=== PATIENT | male | born 1970 | race Caucasian/White ===

== ENCOUNTER 2024-04-17 14:31 | Inpatient (IN) | payer OTHER, SELFPAY ==
[2024-04-17] VITALS (24 sets, daily range): BP systolic 81–120; BP diastolic 60–85; BMI 31.7; BMI 31.4
--- NOTE | 2024-04-17 08:50 | ED.GENMED ---
History of Present Illness
General
Chief Complaint: Heart Rate Problem
Time Seen by Provider: 04/17/24 08:50
History of Present Illness
History of Present Illness:
HPI: Patient presents due to multiple concerns. Yesterday, after having a busy day and after working out, he developed some lower chest discomfort. This was associated with some vague shortness of breath with some pleuritic discomfort. He felt
somewhat dizzy and lightheaded. He was also concerned because his heart rate was elevated and is normally much lower. He regularly works out. He did not necessarily have chest discomfort during working out on the [employer] yesterday.
EXAM:
GENERAL: In no distress, athletic build, very well-appearing
HEENT: Moist oral mucosa
CARDIOVASCULAR: No murmurs, normal heart rate, regular rhythm, No chest wall tenderness
PULMONARY: No respiratory distress, breath sounds are clear and equal
ABDOMEN: Soft with no peritoneal signs, no tenderness
NEUROLOGIC: Excellent strength all extremities, no coordination deficits
PSYCHIATRIC: Appropriate mental status, normal insight and judgement
EXTREMITIES: Nontender, no edema, moves all extremities equally
SKIN: No rash, no lesions
TIME OF INITIAL ENCOUNTER: 8:50 AM
NUMBER AND COMPLEXITY OF PROBLEMS ADDRESSED AT THE ENCOUNTER
� Chronic conditions affecting care: High blood pressure, hyperlipidemia
� Acute Exacerbation and/or Progression of Chronic Illness: This is an acute problem
� Differential Diagnosis includes: Anxiety, dehydration, ACS, thyroid disease, electrolyte abnormality
AMOUNT AND/OR COMPLEXITY OF DATA TO BE REVIEWED AND ANALYZED
� I performed an independent evaluation of and my interpretation is:
EKG: Sinus 88, normal axis, no acute ST abnormality, some mild artifact noted
CT:
X-rays:
Laboratory Studies: Troponin 0.126, D-dimer negative
Other:
� Review of other/old records: I reviewed old records�the patient had a colonoscopy in June 2020
� Clinical information was obtained by an independent historian: I spoke to the at bedside
� Prescriptions/Medications Considered but not given:
� Further testing considered but not performed:
RISK OF COMPLICATIONS AND/OR MORBIDITY OR MORTALITY OF PATIENT MANAGEMENT
� Social determinants of health affecting care: Lives at home
� Discussion with other providers: I spoke to Dr. Keith and he excepted his service for further management.
� Escalation of care including admission/observation vs risk of discharge considered: The patient does not have a history of high blood pressure and high cholesterol. He is not a diabetic and never smoked but he does have a
brother who had a heart attack and was stented at the age of 41. The patient currently denies any chest pressure other than perhaps minimal discomfort�1 nitroglycerin given. The patient was placed on heparin.
Past History
Past History
ED Past Medical History: None
ED Past Surgical History: None
Social History
Tobacco: Non-smoker
Alcohol: Occasional
Drug: None
Personal:
Living: with family
Employment: Employed
Family History
Family History: Other
Phy Exam
Physical Exam
Physical Exam:
See HPI
Course
Orders/Labs/Results
Orders:
Orders
04/17/24 08:37
Electrocardiogram (*1) Urgent
Reason for Study: Tachycardia
EKG- Treatment ONCE
04/17/24 08:58
0.9% Sodium Chloride 1000 ml [Nss] 1,000 ml IV BOLUS
04/17/24 09:05
Complete Blood Count/With Diff Urgent
Comprehensive Metabolic Panel Urgent
D-Dimer Urgent
Magnesium Urgent
TSH Reflex To Free T4 Urgent
Troponin I Urgent
04/17/24 09:47
Aspirin 325 mg PO NOW STA
Heparin 4,000 units IV NOW STA
Nitroglycerin Sublingual [Nitrostat (Sublingual)] 0.4 mg SL NOW STA
04/17/24 09:48
PTT Urgent
Comment: Obtain baseline before beginning heparin infusion if not already collected
Nursing to Place Non Medication Order As Directed
Physician Order: PTT 6 hours after initial start of Heparin infusion
04/17/24 10:00
Heparin 04300 Units/250 ml 25,000 units in 250 ml IV PER PROTOCOL
Weight to be used for heparin protocol in kilograms (kg):: 115.2
Protocol:: Cardiac Tx/Acute Coronary
PTT Goal Range to be used:: PTT 73 to 111 seconds
Order type:: Initial
INITIAL Infusion Dose (UNITS/KG/hr) & then follow protocol:: 15 units/kg/hr
Infusion Dose in UNITS/hr & then follow protocol (UNITS/hr):: 1,500
INFUSION RATE in mL/hr & then follow protocol (mL/hr):: 15
PTT less than or equal to 64 seconds:: Increase rate by 200 units/hr (+ 2 mL/hr)
PTT 64.1 to 72.9 seconds:: Increase rate by 100 units/hr (+ 1 mL/hr)
PTT 73 to 111 seconds:: Target Range. No change in rate.
PTT 111.1 to 130.9 seconds:: Decrease rate by 100 units/hr (- 1 mL/hr)
PTT 131 to 199.9 seconds:: HOLD for 1 hr. Then decrease rate by 200 units/hr (- 2 mL/hr)
PTT greater than or equal to 200 seconds:: HOLD for 2 hrs & Notify Provider. Then decrease by 200 units/hr (-
2 mL/hr)
Lab follow-up:: Each change, PTT q6h until 2 consecutive are therapeutic. Then PTT
daily.
Pharmacy Request to Place See Dose Instructions IV DIRECTED
Abnormal Lab Results
04/17/24
09:05
RBC 4.50 L 10^6/uL
(4.70-6.10)
MCH 32.2 H pg
(27.0-31.0)
Absolute Neuts (auto) 7.8 H 10^3/uL
(1.4-6.5)
Absolute Monos (auto) 1.3 H 10^3/uL
(0.1-0.6)
Lymphocytes % 13.8 L %
(20.5-51.1)
Monocytes % 11.7 H %
(1.7-9.3)
BUN 26 H mg/dl
(9-20)
Glucose 119 H mg/dl
(70-99)
Troponin I 0.126 H* ng/ml
04/17/24 09:05
04/17/24 09:05
Vital Signs
Initial and Last Documented VS:
Initial Vital Signs
Temp Pulse Resp BP Pulse Ox
98.7 F 89 18 116/80 100
04/17/24 08:43 04/17/24 08:43 04/17/24 08:43 04/17/24 08:43 04/17/24 08:43
Last Documented Vital Signs
Temp Pulse Resp BP Pulse Ox
98.7 F 86 13 101/82 96
04/17/24 08:43 04/17/24 09:00 04/17/24 09:00 04/17/24 09:00 04/17/24 09:00
*Critical Care Note
Total Time (30-74mins, 75-104mins- exclusive of procedures): Not Applicable
ED Attending Note
-
Portions of this chart may have been created with voice recognition software.� Occasional wrong word or��sound alike� substitutions may have occurred due to the inherent limitations of voice recognition software.
Discharge Plan
Departure
Patient Disposition: Admit
Date of Disposition: 04/17/24
Time of Disposition: 09:57
Presentation/result/management discussed w/ accepting MD/DO: Hospitalist
Discharge Problem:
Acute coronary syndrome with high troponin
Prescriptions:
No Action
sulfamethoxazole-trimethoprim 800 MG/160 MG tablet
1 tab PO BID Qty: 14 0RF
hydrocodone-acetaminophen [Vicodin] 1 EACH tablet
1 ea PO .Q4-6HPRN Qty: 12 0RF
ibuprofen 600 MG tablet
600 mg PO Q6H Qty: 30 0RF
cephalexin 500 MG capsule
500 mg PO QID Qty: 28 0RF
multivitamin [Daily Multiple] 1 EACH tablet
1 tab PO DAILY
Referrals:
Angus Simon PA-C [Family Provider] -
Interventions
Interventions:
*Risk Screen - Suicide Last Done: 04/17/24 08:43
*General Assessment Last Done: 04/17/24 08:43
*Neglect/Abuse Screening Last Done: 04/17/24 08:43
ED- Fall Risk Assessment Last Done: 04/17/24 09:10
*ED COVID-19 Vaccine History Last Done: 04/17/24 08:52
ED- Cardiac Assessment Last Done: 04/17/24 08:52
ED- Pulmonary Assessment Last Done: 04/17/24 08:52
Discharge Date and Time
Print Language: SALVADOREAN
[2024-04-17] MEDS: NSS 1000 IV (09:04)
[2024-04-17 09:19] LABS: % Basophils 0.4 % (0-2); % Eosinophils 1.1 % (0-6); % Immature Granulocytes 0.3 % (0-0.5); % Lymphocytes 13.8 % (20.5-51.1); % Monocytes 11.7 % (1.7-9.3); % Neutrophils 72.7 % (42.2-75.2); Absolute Eosinophils 0.1 10^3/uL (0-0.7); Absolute Lymphocytes 1.5 10^3/uL (1.2-3.4); Absolute Monocytes 1.3 10^3/uL (0.1-0.6); Absolute Neutrophils 7.8 10^3/uL (1.4-6.5); Hematocrit 41.6 % (39.0-52.0); Hemoglobin 14.5 g/dL (13.0-18.0); Mean Corp Hgb Conc. 34.9 g/dL (33.0-37.0); Mean Corpuscular Hgb 32.2 pg (27.0-31.0); Mean Corpuscular Volume 92.4 fL (80.0-94.0); Mean Platelet Volume 10.4 fL (7.4-10.4); Nucleated Red Blood Cells % 0 % (-); Platelet Count 247 10^3/uL (130-400); Red Cell Dist. Width 12.6 % (11.5-14.5); White Blood Cell Count 10.7 10^3/uL (4.8-10.8)
[2024-04-17 09:31] LABS: ALT (SGPT) 19 U/L (0-50); AST (SGOT) 26 U/L (17-59); Albumin 4.6 g/dl (3.5-5.0); Alkaline Phosphatase 56 U/L (38-126); Blood Urea Nitrogen 26 mg/dl (9-20); Calcium 9.5 mg/dl (8.4-10.2); Carbon Dioxide 23 mmol/L (22-30); Chloride 102 mmol/L (98-107); Estimated Creatinine Clearance 87 ml/min; Glucose 119 mg/dl (70-99); Magnesium 1.9 mg/dl (1.6-2.3); Potassium 4.5 mmol/L (3.5-5.1); Sodium 141 mmol/L (135-145); Total Protein 6.8 g/dl (6.3-8.2); eGFR > 60.00
[2024-04-17 09:46] LABS: Troponin I 0.126 ng/ml
[2024-04-17 09:50] LABS: D-Dimer 0.42 ug/mlFEU (0.00-0.50)
[2024-04-17] MEDS: NITROSTAT (SUBLINGUAL) 0.4 MG SL (10:00)
[2024-04-17] MEDS: ASPIRIN 325 MG PO (10:00)
[2024-04-17 10:02] LABS: TSH Reflex To Free T4 1.65 uIU/ml (0.47-4.68)
[2024-04-17] MEDS: HEPARIN 25000 UNITS/250 ML IV (10:08)
[2024-04-17] MEDS: HEPARIN 4000 UNITS IV (10:09)
--- NOTE | 2024-04-17 10:53 | HPS.HSE ---
Addendum entered and electronically signed by Danish Keith MD 04/17/24 12:17:
Patient seen and examined in collaboration with CONTINUOUS WAVE OPERATOR; agree with below.
-54-year-old male with hypertension, hyperlipidemia, mild obesity, and family history of coronary artery disease (brother and father) presenting with chest pain and shortness of breath over the past day.
-The patient was found to have a notable murmur on examination; cardiac troponin mildly elevated at 0.129.
-Urgent bedside echocardiogram revealed significant mitral regurgitation secondary to flail posterior leaflet of the mitral valve, which is likely acute as the patient has borderline hyperdynamic left ventricular function (and he was not told that
he had a murmur before).
-Patient will undergo cardiac catheterization for definitive coronary assessment.
-CT Surgery has been notified of the above.
-Patient is currently hemodynamically stable, but does still have some mild midepigastric pain.
-Patient being admitted to the Cardiology service on telemetry in the IVU.
-Keep NPO for cardiac catheterization.
Original Note:
Family Physician
-
Family Physician: Angus Simon
Chief Complaint
-
chest pain, lightheadedness, palpitations
History of Present Illness
Mr. Carranza is a 54 yo male with HTN, HLD, who presents to the ER with c/o chest pain, palpitations and lightheadedness that began last night. Yesterday at 4:30p he rode his [employer], 30 min ride, then walked his dog. He was breaking down cardboard
boxes in his garage and suddenly felt dizzy, sweaty and mild chest pain/epigastric pain. He sat down and noted his heart rate was 110-115 bpm on his Apple Watch, then his rate dropped to 65 then fluctuated between 90 and 60 bpm. He has been very
stressed with work and took an Ativan before bed. He woke up at 2am with chest pressure/epigastric pressure that was moderate. It is intermittent mild to moderate and still persists. He was given a SL NTG in the ER with minimal relief. He did
eat a small breakfast at 7am today.
Medical History
Past Medical History
Past Medical History: Reports HTN and Hypercholesterolemia
Past Surgical History: Reports None
Social History
Tobacco: Non-smoker
Alcohol: Occasional (2-3 drinks, 2-3 times a week)
Personal:
Living: With Family
Employment: Employed
Family History
Family History: Early CAD (brother MO with PCI age 41) and CAD (father had CABG x 4 age 65)
Allergies / Home Medications
Allergies reflects when Allergies were last updated in [employer] [employer].
Home Medications with original date entered in [employer]
Losartan 100mg daily
Crestor 10mg daily
Allergy/Medication List:
NKDA
Review of Systems
-
History Source: Patient and Family ()
A 12 point ROS was completed and negative except as noted: Yes
Physical Exam
Vital Signs
Vital Signs
Temp Pulse Resp BP Pulse Ox
98.7 F 86 13 104/72 96
04/17/24 08:43 04/17/24 09:00 04/17/24 09:00 04/17/24 10:00 04/17/24 09:00
Physical Exam
General: Well Developed, Well Nourished and No Apparent Distress
HEENT: NormoCephalic, Anicteric and Moist mucous membranes
Respiratory: Clear and Non Labored Respirations
Cardiac: S1/S2, Regular Rhythm and Murmur (2/6 XAVIER)
Breast: Deferred by me
GI: Soft, Non Tender, Non Distended and Normal Bowel Sounds
Rectal: Deferred by Provider
Genito-urinary: No costovertebral tender
Musculoskeletal: No Clubbing, No Cyanosis and No Edema
Skin: Warm and Dry
Neuro: AO x 3 and Nonfocal/grossly intact
Hematologic/Lymphatic: No Lymphadenopathy
Psych: Calm
Laboratory Results
-
04/17/24 09:05
04/17/24 09:05
Laboratory Results
Total Bilirubin 1.0 mg/dl (0.2-1.3) 04/17/24 09:05
AST 26 U/L (17-59) 04/17/24 09:05
ALT 19 U/L (0-50) 04/17/24 09:05
Alkaline Phosphatase 56 U/L (38-126) 04/17/24 09:05
Troponin I 0.126 ng/ml H* 04/17/24 09:05
Data Reviewed
-
Medical Tests (Nuc Med, Echo, EKG etc): Image Personally Visualized and interpreted (EKG NSR)
Lab Data: Labs Reviewed by me
Old Records: Reviewed
Impression/Plan
-
IMPRESSION/PLAN:
Chest pain/ACS - acute, after exercise yesterday.
- initial troponin 0.126, trend to peak.
- EKG NSR
- IV Heparin, SL NTG.
- plan for cath lab tech today.
Palpitations - monitor on tele.
- likely need outpatient cardiac monitoring.
Murmur - new.
- check echo.
HTN - stable.
- on Losartan 100mg daily at home.
HLD - check lipid profile.
- on Crestor 10mg daily.
--- NOTE | 2024-04-17 13:03 | PHANOTE ---
Med Rec Note:
Pt left for floor prior to pharmacist arrival. Home med list compiled from Dr Weinberg, left unconfirmed. Flow Nurse asked floor to confirm medications.
--- NOTE | 2024-04-17 13:07 | CONSULT.CT ---
Consultation
-
Date/Time Consultation Requested: 04/17 1300
Date/Time Consultation Performed: 04/17 1310
Requesting Provider: Dr. Keith
Performing Provider: Bertram PATTEN for Dr Mota
Reason for Consultation: Severe MR
Patient History
Physicians
Family Physician: Angus Simon
Outpatient Manager Of Construction: Danish Keith MD
Inpatient Manager Of Construction: Danish Keith MD
History of Present Illness
54-year-old male with past medical history of hypertension, GI polyps, and hyperlipidemia presented to [facility] emergency room on 04/17 with complaints of chest pain, palpitations, and lightheadedness that began last night. He was having an
active night and suddenly felt dizzy, sweaty, and had some mild chest pain/epigastric pain. On his Apple Watch he found that he was tachycardic with heart rate (110s) and then dropped to 65. He then took an ativan and went to bed. At 2 AM he woke
up with more moderate chest pressure and came to the emergency room. While in the emergency room he took 1 sublingual nitroglycerin and felt minimal relief.
Since admission cardiology was consulted and he was found to have a notable murmur on examination and a mildly elevated troponin at 0.129. An urgent bedside echocardiogram revealed severe mitral regurgitation secondary to a flail posterior leaflet.
He is now undergoing a left heart cath and CT surgery was consulted for surgical evaluation.
Past Medical History
Past Medical History: Arrhythmias, HTN, Hypercholesterolemia and SOB
Past Surgical History
Past Surgical History: Urological (varicocele) and Other
Dental History
[facility] will call for dental clearance
Family History
Mother: N/A
Father: N/A
Social History
Alcohol: Occasional (3x/week)
Drug: None
Tobacco: Non-Smoker
Personal:
Living: Alone
Employment: Employed
Allergies
Allergy/AdvReac Type Severity Reaction Status Date / Time
No Known Allergies Allergy Verified 03/15/13 17:34
Home Medications
�Medication �Instructions �Recorded �Confirmed �Type
losartan 100 mg tablet 100 mg PO DAILY 04/17/24 History
rosuvastatin 10 mg tablet 10 mg PO HS 04/17/24 History
Review of Systems
-
History Source: Patient and Family
General: Reports Sleep Disturbance
HEENT: Reports No Symptoms
Respiratory: Reports SOB, SRIVASTAAV and Cough (2/2 to right hemidiaphgram pain)
Cardiac: Reports Chest Pain
Abdomen/GI: Reports Abdominal Pain
: Reports No Symptoms
Musculoskeletal: Reports No Symptoms
Skin: Reports No Symptoms
Neurological: Reports Dizzy
Vascular: Reports No Symptoms
Physical Exam
Vital Signs
Temp 98.7 F 04/17/24 08:43
Temp route: Oral 04/17/24 08:43
Pulse 92 04/17/24 12:30
Resp Rate 18 04/17/24 12:30
Blood pressure 111/72 04/17/24 12:30
MAP (cuff-Wilfred Monitor) 85 04/17/24 12:30
SaO2 97 04/17/24 12:30
Oxygen Mode of Delivery Room air 04/17/24 08:43
Can the patient verbally communicate their pain? Yes 04/17/24 10:00
Pain scale rating: Pt states unable to rate 04/17/24 10:00
Actual Weight 115.2 kg 04/17/24 08:52
Body Mass Index (BMI) 31.7 04/17/24 08:52
Labs
04/17/24 09:05
04/17/24 09:05
Troponin I 0.126 ng/ml H* 04/17/24 09:05
Exam
General: Well Developed and Well Nourished
HEENT: Normocephalic
Respiratory: Clear and Crackles
Cardiac: Murmur
GI: Soft and Non Tender
Rectal: Deferred by Provider
Skin: Warm and Dry
Neuro: AO x 3 and Other (anxious)
Lymph: No Lymphadenopathy
Psych: Other (anxious)
Assessment / Plan
-
54-year-old male with past medical history listed above presents with acute shortness of breath and chest pain. Found to have a flail leaflet on his mitral valve. CT surgery was consulted for surgical evaluation.
#Severe Mitral Regurgitation
- LHC and ALEXANDER pending
- Patient's case will be discussed with attending physician. Further details regarding surgical timing intervention will be determined after attending physicians full evaluation
- Routine preoperative cardiothoracic surgery orders will be initiated.
- STS risk stratification score will be calculated after preoperative testing is complete
--- NOTE | 2024-04-17 14:01 | PTCARENOTE ---
Received pt from the ED via stretcher. Pt AAO x3, VSS. Heparin drip infusing at 15 ml/hr. Pt verbalized sob and 'mid diaphram tightness'. Pt rates this tightness as 2 out of 10 on pain scale. Pt states that the tightness increases when coughing
or laying flat. Offered comfort measures. Will monitor.
--- NOTE | 2024-04-17 15:32 | ITS.CL.CATH ---
[employer] [employer] - Catheterization
Cardiac Catheterization
Procedure Report:
CARDIAC CATHETERIZATION REPORT
Date of Procedure: 04/17/2024
Referring: Danish Keith MD
Indication: Suspected severe mitral regurgitation
�
HEMODYNAMIC DATA
AO: 116/82
LV: 116/20
PCWP: 20
PA: 42/22
RV: 42/16
RA: 4
Oximetry: Ao 81%, PA 49%, cardiac output 4.7, cardiac index 1.9
�
LEFT VENTRICULOGRAPHY: Left ventricular cavity size appears to be within normal limits. There is hyperdynamic left ventricular wall motion with EF greater than 65%. There is mitral regurgitation at least moderate in severity and possibly severe
�
CORONARY ANGIOGRAPHY
Dominance: Right
Left Main: Normal
LAD: Trivial luminal irregularities
Circumflex: Normal
RCA: Dominant with trivial luminal irregularities
�
Closure Device: None-the procedure was performed via the right radial artery and right femoral vein
�
Radiation dose (mGy): 473
DAP (cm2.Gy): 35.7
Fluoroscopy time: 2.5 minutes
�
CONCLUSIONS:
1. Elevated filling pressures with mild pulmonary hypertension
2. Hypoxemia with aortic saturation in the 85% range on O2 5 L/min
3. Hyperdynamic left ventricular wall motion with EF greater than 65%
4. At least moderate and possibly severe mitral regurgitation
5. No significant CAD
�
RECOMMENDATIONS: Lasix 20 mg IV x 1 given. He will likely need corrective mitral valve surgery. We will obtain a chest x-ray PA and lateral. Pulmonary consultation is recommended given the degree of hypoxemia. ALEXANDER will be done when clinically
stable-at this time he is too hypoxic to undergo ALEXANDER unless he gets intubated
�
Copy to: Danish eKith MD, Pankaj Simon, KASEY
�
Roman Li MD, FAC, [facility]
--- NOTE | 2024-04-17 16:12 | CM ---
CM following for DC planning needs.
Met w/ patient and mult. family members at bedside. Introduced CM, explained role.
Pt. resides w/ spouse in a private, 2 story home. Main bedroom/ bath located on 2nd level.
Functionally, patient is indep. at baseline w/ ADLs, mobility without any assisted device; no DME @ home. Pt. works full-time.
Pt. has Rx plan and uses [facility] on [address]
CT Surg C/S pending.
CM to follow for DC planning needs.
--- NOTE | 2024-04-17 16:30 | PTCARENOTE ---
Received pt post left and right heart cath. Right radial site w/ R band intact w/ 11 ml of air. Right groin site w/ dressing intact. Pt given 20 mg of lasix in the cardiac shipyard laborer. Pt orthopneic pre and post cath. VSS. Pulse ox of 93% on 3
liters via nasal cannula. Pt soon became more tachypneic and diaphoretic. Pt's nasal cannula increased to 6 liters due to saturation of 85% and continued increase work of breathing. Dr. Li at pt bedside. Will monitor.
[2024-04-17 17:42] LABS: COVID-19 Antigen Negative (Negative)
[2024-04-17] MEDS: MAGNESIUM OXIDE 500 MG PO (18:07)
[2024-04-17] MEDS: PROTONIX 40 MG PO (18:07)
[2024-04-17] MEDS: LOPRESSOR 25 MG PO (18:07)
[2024-04-17] MEDS: BACTROBAN 2% OINTMENT 1 APPLIC NASAL ×2 (18:16→23:57)
--- NOTE | 2024-04-17 19:27 | PTCARENOTE ---
Blood cultures x 2 sets drawn per MD order.
--- NOTE | 2024-04-17 19:28 | PTCARENOTE ---
Pt clipped and prepped for CVOR. Pt transported to CVOR in CVICU bed, accompanied by the CV PA. Pt's spouse, sister and children in The family comfort lounge.
[2024-04-17 19:36] LABS: Urine Albumin Trace (Neg - Trace); Urine Bilirubin 1+ (Negative); Urine Character Clear (Clear); Urine Color Yellow; Urine Glucose Negative (Negative); Urine Ketone Negative (Negative); Urine Leukocyte Trace (Negative); Urine Nitrite Negative (Negative); Urine Occult Blood 3+ (Negative); Urine Urobilinogen Negative (Neg - 1+)
[2024-04-17 19:53] LABS: ACT+ - POC 104 Seconds (82-134)
[2024-04-17 19:54] LABS: Urine Bacteria Few (Negative); Urine Red Blood Cell 30-40 /HPF (0-2); Urine White Cell 0-2 /HPF (0-5)
[2024-04-17 20:22] LABS: ACT+ - POC 610 Seconds (82-134)
[2024-04-17 20:40] LABS: B.E. - POC -4.1 mmol/L; Glucose - POC 138 mg/dl (70-99); HCO3 - POC 21 mmol/L (21-29); Hematocrit - POC 46 % PCV (42-52); Hemodilution- POC No; Hemoglobin Calculated - POC 15.6; O2 Saturation %Calculated-POC 85.1 5 (92-96); PCO2 - POC 36 mmHg (35-45); PO2 - POC 51 mmHg (80-100); Potassium - POC 4.1 mmol/L (3.6-5.0); Sodium - POC 140 mmol/L (135-145); pH - POC 7.37 (7.35-7.45)
[2024-04-17 20:51] LABS: ACT+ - POC 496 Seconds (82-134)
[2024-04-17 21:03] LABS: B.E. - POC -1.6 mmol/L; Glucose - POC 147 mg/dl (70-99); HCO3 - POC 25 mmol/L (21-29); Hematocrit - POC 34 % PCV (42-52); Hemodilution- POC Yes; Hemoglobin Calculated - POC 11.7; Ionized Calcium - POC 1.06 mmol/L (1.12-1.27); O2 Saturation %Calculated-POC 99.7 5 (92-96); PCO2 - POC 49 mmHg (35-45); PO2 - POC 225 mmHg (80-100); Potassium - POC 4.3 mmol/L (3.6-5.0); Sodium - POC 138 mmol/L (135-145); pH - POC 7.32 (7.35-7.45)
[2024-04-17 21:13] LABS: ACT+ - POC 571 Seconds (82-134)
[2024-04-17 21:38] LABS: B.E. - POC -2.6 mmol/L; Glucose - POC 156 mg/dl (70-99); HCO3 - POC 24 mmol/L (21-29); Hematocrit - POC 38 % PCV (42-52); Hemodilution- POC Yes; Ionized Calcium - POC 1.12 mmol/L (1.12-1.27); PCO2 - POC 49 mmHg (35-45); PO2 - POC 411 mmHg (80-100); POC Comment CPB; Potassium - POC 5.1 mmol/L (3.6-5.0); Sodium - POC 138 mmol/L (135-145)
[2024-04-17 21:48] LABS: ACT+ - POC 517 Seconds (82-134)
[2024-04-17 22:03] LABS: Glucose - POC 153 mg/dl (70-99); HCO3 - POC 26 mmol/L (21-29); Hematocrit - POC 37 % PCV (42-52); Hemodilution- POC Yes; Hemoglobin Calculated - POC 12.7; Ionized Calcium - POC 1.09 mmol/L (1.12-1.27); O2 Saturation %Calculated-POC 99.9 5 (92-96); PCO2 - POC 44 mmHg (35-45); PO2 - POC 285 mmHg (80-100); POC Comment CPB; Potassium - POC 5.3 mmol/L (3.6-5.0); Sodium - POC 141 mmol/L (135-145); pH - POC 7.39 (7.35-7.45)
[2024-04-17 22:10] LABS: ACT+ - POC 485 Seconds (82-134)
[2024-04-17 22:30] LABS: Glucose - POC 160 mg/dl (70-99); HCO3 - POC 24 mmol/L (21-29); Hematocrit - POC 35 % PCV (42-52); Hemodilution- POC Yes; Hemoglobin Calculated - POC 12.1; Ionized Calcium - POC 1.35 mmol/L (1.12-1.27); O2 Saturation %Calculated-POC 99.8 5 (92-96); PCO2 - POC 45 mmHg (35-45); PO2 - POC 243 mmHg (80-100); POC Comment WARM; Potassium - POC 5.9 mmol/L (3.6-5.0); Sodium - POC 138 mmol/L (135-145); pH - POC 7.33 (7.35-7.45)
[2024-04-17 22:36] LABS: ACT+ - POC 109 Seconds (82-134)
--- NOTE | 2024-04-17 23:11 | W.PN.CT.SURG ---
CT Surgery Operative Note
-
CARDIAC SURGERY OPERATIVE REPORT
Preoperative Diagnosis: Acute mitral valve insufficiency secondary to ruptured cord with secondary respiratory failure
Postoperative Diagnosis: Same, cardiopulmonary shock
Procedure(s) Performed:
1. Urgent sternotomy with aortic and bicaval cannulation
2. Radical mitral valve repair [34 mm band annuloplasty, triangular resection at the P1 and P2 cleft of torn cords with primary repair, placement of 4 Rothschild-Amador cords to P1/P2/P3]
3. Placement of temporary atrial ventricular pacing wires
4. Transesophageal echocardiography
Date of Surgery: 04/17/2024
Comorbidities:
1. Acute systolic and diastolic heart failure with respiratory failure
2. Acute mitral valve flail/torn cord (type II pathology) with severe insufficiency resulting in respiratory failure
3. Hyperlipidemia
4. Hypertension
5. History of arrhythmias
6. Right and left heart cath on this admission with elevated wedge pressures
Attending Surgeon: Calvin Mota MD, MS
Assistants: Calvin Douglas PA-C (present and necessary to medical assistant float, retraction, suction, exposure, suture management, and wound closure under my direction)
Anesthesiology: Cipriano Austin MD and Reggie Hernandez CRNA
Scrub and Circulating RNs: Amol Sandra, RN, Jacques Becerra, VENESSA
Institution Librarian: Aquiles Oscar CCP
Anesthesia: GETA
EBL: per perfusion records
Products: None
CPB Time: 112 minutes
Aortic Cross Clamp Time: 80 minutes
Indication(s) for Procedures: This is a 54-year-old male who was vigorously working out and developed tachycardia and shortness of breath that was unrelenting. He went to the hospital and underwent a transthoracic echocardiogram which demonstrated
severe mitral valve insufficiency with multiple torn cords the posterior leaflet and the eccentric jet directed anteriorly. Left heart cath was unrevealing aside from an elevated wedge pressure and a slightly depressed cardiac index. We had
initially planned for expedited mitral valve repair next week however he had respiratory decompensation and so was brought to the operating room urgently.
Mitral Valve Description: Relatively normal-appearing leaflets, a large flail segment between P1 into P2 with multiple torn cords, mild to moderate degree of mitral annular dilation.
Findings: His left ventricular ejection fraction preoperatively was hyperdynamic as he had severe new mitral valve insufficiency. He had very poor oxygenation with a PaO2 of 50 after induction with anesthesia and intubation. He also was
hemodynamically unstable symptoms heading into cardiopulmonary collapse. He required urgent sternotomy and institution of cardiopulmonary bypass. Once he was on cardiopulmonary bypass he was stable. Following surgery his left ventricular ejection
fraction was 50 to 55% with no regional wall motion abnormalities. His mitral valve had multiple torn cords at the P1 into P2 scallop. Because this is an acute flail with out significant myxomatous degeneration, his leaflets were relatively thin
in comparison to the average degenerative mitral valve patient. There were some mild to moderate degree of annular dilatation. The torn cord was from the anterior lateral papillary muscle head. His mitral valve was repaired using a 34 mm band
angioplasty secured into place with 11 nonpledgeted 2-0 Ethibond sutures using core knots. A total of 4 Rothschild-Amador cords were placed from both the anterior lateral and posterior medial papillary muscle heads. The flail segment of cords were resected
in a triangular fashion and then the P1 and P2 cleft was reapproximated primarily with 5-0 Prolene in interrupted fashion. Due to difficulty with exposure given a small atrium and overall large heart, I was unable to perform a dynamic saline
inflation test. Transesophageal echocardiography after coming off of cardiopulmonary bypass revealed none to trace residual mitral valve insufficiency, no systolic anterior motion of leaflets, and a mean gradient of 2 mmHg across the valve.
Initially upon coming off of cardiopulmonary bypass he had poor oxygenation required a pulmonary treatment and diuresis. After this, his cardiac index was found to be 1.9 on 4 of epinephrine for Levophed. He did not require any blood products. He
was in sinus rhythm.
Specimen(s): Torn cords.
Prosthesis:
1. 34 mm band angioplasty, Butler physio flex, serial #[id number]
Description of Procedure: The patient was taken to the operating room. Their identity and procedure to be performed were verified and they were positioned supine on the operating table. Induction via general anesthesia with endotracheal intubation
was performed and central venous access and arterial monitoring were inserted. A preoperative transesophageal echocardiogram was performed to assess cardiac function and valvular function. The patient was then prepped and draped from chin to feet in
a sterile fashion. A urgent preoperative time-out was performed with all members of the team present. At this point the patient started to decompensate during prepping and therefore we had to expedite a midline chest incision was performed along
with median sternotomy. The innominate vein was isolated. Full heparinization was given (a total of 70,000 units). We created a pericardial well. The aortic cannulation site was chosen where it was soft, pliable, and free of calcium. Cannulation was
performed with an arterial cannula in the ascending aorta, angled metal tip cannular in the superior vena cava and straight bendable cannula in the inferior vena cava. The arterial cannula line had an appropriate bounce and correlating pressures.
Next, a root vent/antegrade cannula was inserted into the ascending aorta. The ACT was confirmed to be over 400 and retrograde autologous priming was performed before commencing cardiopulmonary bypass. The pulmonary artery was away from
the aorta to facilitate a clamp site. Sondergaard�s groove was developed after creating the oblique sinus. The aortic cross-clamp was placed after decreasing the flow on the bypass and mean arterial pressure. A total of 1.0L initial dose of
antegrade Del-Nido cardioplegia solution was given and planned for re-dosing every 75 minutes as necessary. There was rapid electro-mechanical arrest of the heart at 180 cc of cardioplegia. The left ventricle was observed for distention on
echocardiogram and manual palpation. Cold slush was placed into a lap on the RV and we systemically cooled to 34 degrees centigrade.
Carbon dioxide was used to flood the field. The mitral valve was access via the left atrial followed by valve analysis. The mitral valve was repaired as described above. The left ventricular vent was repositioned across the mitral valve into the
left ventricular and the left atrium was closed with a 3-0 prolene.
De-airing maneuvers were performed and temporary bipolar ventricular pacing wires were placed on the base of the right ventricle along with atrial pacing wires at the SVC right atrial junction. The patient was placed in a Trendelenburg position and
flows on bypass were lowered. The aortic cross clamp was removed and flows were slowly brought back up. The left atrial suture line was hemostatic. Transesophageal echocardiography revealed no evidence of systolic anterior motion and ventricular
function was normal. Once de-airing was satisfactory the left ventricular and root vents were removed. After verifying acceptable parameters, we initiated weaning from cardiopulmonary bypass. Once we were off cardiopulmonary bypass, the venous
cannulas was clamped and removed sequentially. A test dose of protamine was administered and the patient was monitored for any adverse reaction before resuming protamine. Once half of the protamine dose was delivered, pump suckers were turned off
and the systolic blood pressure was lowered for aortic decannulation. The aortic cannula was removed and purse strings were tied down. All cannulation sites were oversewn with a 4-0 prolene. The left atrial suture line was inspected and hemostasis
was confirmed. Mediastinal hemostasis was obtained. Two #24 Hong drains were placed within the pericardium. The sternum was approximated with 4 #7 single and 3 #8 double stainless steel wires. Fascia was approximated with #1 vicryl suture. The
subcutaneous, dermis and epidermis were closed in layers in a running fashion. The skin wound was cleansed and dressed.
All instrument, sponge, and needle counts were confirmed to be correct x 2 at the end of the operation. The patient was transferred to the cardiac intensive care unit in critical but stable condition.
I, Dr. Calvin Mota, was present, scrubbed for, and performed all critical elements of this procedure.
Calvin Mota MD, MS
Cardiothoracic Surgeon
[facility]
This dictation was created using the [employer] dictation system. Please excuse any grammatical, typographical, or 'sound alike' errors
[2024-04-17 23:14] LABS: Glucose - POC 162 mg/dl (70-99); HCO3 - POC 22 mmol/L (21-29); Hematocrit - POC 37 % PCV (42-52); Hemodilution- POC Yes; Hemoglobin Calculated - POC 12.6; Ionized Calcium - POC 1.18 mmol/L (1.12-1.27); O2 Saturation %Calculated-POC 94.7 5 (92-96); PCO2 - POC 39 mmHg (35-45); PO2 - POC 77 mmHg (80-100); POC Comment POST; Potassium - POC 5.2 mmol/L (3.6-5.0); Sodium - POC 139 mmol/L (135-145); pH - POC 7.36 (7.35-7.45)
[2024-04-17 23:40] LABS: Glucose - Point of Care 174 mg/dl (70-99)
[2024-04-17 23:45] LABS: Mixed Venous O2 Saturation 61.2 %
[2024-04-17] MEDS: VERSED 0.5 MG IV (23:49)
[2024-04-17] MEDS: NSS 500 IV (23:50)
[2024-04-17 23:51] LABS: B.E. -5.4 mmol/L; HCO3 20.6 mmol/L (21-28); Ionized Calcium 1.11 mMOL/L (1.15-1.33); O2 Saturation % 94.1 % (94-98); PCO2 41 mmHg (35-48); PO2 65 mmHg (83-108); Potassium 4.5 mMOL/L (3.5-5.1); Sodium 135 mMOL/L (136-145); pH 7.31 (7.35-7.45)
[2024-04-17] MEDS: DILAUDID 0.5 MG IV (23:51)
[2024-04-17] MEDS: SENOKOT-S PO (23:54)
[2024-04-17] MEDS: PACERONE PO (23:54)
[2024-04-17] MEDS: CRESTOR PO (23:54)
[2024-04-17] MEDS: NEURONTIN PO (23:54)
[2024-04-17] MEDS: TYLENOL PO (23:55)
[2024-04-18] VITALS (27 sets, daily range): BP systolic 92–129; BP diastolic 50–91; PULSE 81; O2SAT 81–95; BMI 31.7
[2024-04-18 00:03] LABS: INR 1.41
[2024-04-18 00:04] LABS: APTT 29.3 Sec (23.4-35.0)
[2024-04-18] MEDS: VERSED 0.5 MG IV (00:05)
[2024-04-18 00:06] LABS: Blood Urea Nitrogen 24 mg/dl (9-20); Estimated Creatinine Clearance 80 ml/min; Glucose 176 mg/dl (70-99); Magnesium 2.3 mg/dl (1.6-2.3)
[2024-04-18] MEDS: ANCEF 10 IV ×2 (00:33)
[2024-04-18 00:35] LABS: Hematocrit 36.5 % (39.0-52.0); Hemoglobin 12.9 g/dL (13.0-18.0); Platelet Count 194 10^3/uL (130-400)
[2024-04-18] MEDS: CALCIUM CHLORIDE 10% SYRINGE 50 MG IV (00:38)
[2024-04-18] MEDS: SODIUM BICARBONATE 50 MEQ IV ×2 (00:38)
[2024-04-18] MEDS: CALCIUM CHLORIDE 10% SYRINGE 50 ML IV (00:38)
--- NOTE | 2024-04-18 00:45 | PTCARENOTE ---
Addendum entered by Edith Null RN 04/18/24 03:09:
Correction Ventilator setting A/C.
Original Note:
Received pt from [facility] at 2320; pt intubated and sedated; NSR on monitor and vsS; Aden Hector floated to 50, Left A-line and PIVx2 all lines leveled and zeroed; Insulin, Precedex, Levo and Epi infusing see flow sheet for details; Epicardial A/V
wires in place and box turned off; Lungs diminished; ETT 8@ 24; SIMV 100%/8/18/600; CT x2 to -20 wall suction no air leak and no crepitus noted; hypoactive bowel sounds; Peace catheter draining clear yellow urine; palpable pulses throughout; no
edema noted; all surgical sites C/D/I; family at bedside and updated on plan; see nursing documentation for further details.
CI 1.56
CO 3.78
SVR 1206
[2024-04-18 01:11] LABS: Glucose - Point of Care 166 mg/dl (70-99)
[2024-04-18 02:06] LABS: Glucose - Point of Care 137 mg/dl (70-99)
[2024-04-18] MEDS: PRECEDEX 100 IV ×2 (02:18→05:55)
[2024-04-18 03:04] LABS: Glucose - Point of Care 104 mg/dl (70-99)
--- NOTE | 2024-04-18 03:07 | PTCARENOTE ---
Assessment unchanged; NSR on monitor and VSS; Epi, Levo, Precedex and Insulin infusing see flow sheet for details.
[2024-04-18] MEDS: ASPIRIN 300 MG RECTAL (03:22)
[2024-04-18] MEDS: OFIRMEV 100 IV ×2 (03:22→10:59)
[2024-04-18] MEDS: DOBUTREX 500 MG 250 IV (03:36)
[2024-04-18 03:39] LABS: B.E. 2.4 mmol/L; HCO3 26.4 mmol/L (21-28); Ionized Calcium 1.24 mMOL/L (1.15-1.33); O2 Saturation % 99.3 % (94-98); PCO2 38 mmHg (35-48); PO2 158 mmHg (83-108); pH 7.45 (7.35-7.45)
[2024-04-18 03:42] LABS: Hematocrit 35.5 % (39.0-52.0); Hemoglobin 12.7 g/dL (13.0-18.0); Platelet Count 180 10^3/uL (130-400)
[2024-04-18] MEDS: DILAUDID 0.5 MG IV ×3 (03:53→19:27)
--- NOTE | 2024-04-18 04:00 | PTCARENOTE ---
EKG, labs and daily weight collected; pt bathed with CHG wipes and sheets changed; assessment unchanged; NSR on monitor and vSS; Dobutamine, Insulin, Levo infusing see flow sheet for details
[2024-04-18 04:08] LABS: Blood Urea Nitrogen 26 mg/dl (9-20); Calcium 9.2 mg/dl (8.4-10.2); Carbon Dioxide 25 mmol/L (22-30); Chloride 107 mmol/L (98-107); Estimated Creatinine Clearance 80 ml/min; Glucose 111 mg/dl (70-99); Potassium 4.6 mmol/L (3.5-5.1); Sodium 142 mmol/L (135-145); eGFR 58.99
[2024-04-18 04:09] LABS: HDL Cholesterol 56 mg/dl; LDL Cholesterol, Calculated 51 mg/dl; Magnesium 2.3 mg/dl (1.6-2.3); Total Cholesterol 130 mg/dl (50-199); Triglyceride 116 mg/dl (10-149); Very Low Density Lipoprotein 23 mg/dl (0-30)
[2024-04-18 04:13] LABS: Glucose - Point of Care 105 mg/dl (70-99)
[2024-04-18] MEDS: CALCIUM CHLORIDE 10% SYRINGE 60 MG IV (04:54)
--- NOTE | 2024-04-18 05:13 | W.PN.CT ---
Today's Communication / Plan
-
Plan:
-No major issues overnight. Hemodynamically and neurologically intact, moved all extremities appropriately and followed commands when given sedation vacation
-Pt kept intubated overnight, vent settings: SIMV/TV 600, R from 18 to 16, PEEP from 8 to 5 to, Fio2 from 100 to 60%
-Wean off sedation and ventilator
-Weaned off Epinephrine and transitioned to dobutamine 2.5 mcg/kg/min this AM , and on insulin gtt per protocol
-Last CI 2.25, MVO2 61.2%, u/o since OR 900 mL
-Monitor chest tube output: 2meds 80/80
-Cont. current meds (ASA, Crestor; Amiodarone and BB currently on hold while on dobutamine)
-D/C swan and a-line when able to wean off dobutamine
-Transfer to [facility] phase when able to wean of dobutamine, and when insulin gtt is off per protocol
-Keep drake catheter while on dobutamine to monitor I/O's
-Maintain cordis
-Maintain temporary PW
-Wean off of O2 as tolerated
-Encourage use of IS
-OOB into chair
Assessment / Plan
-
Assessment:
-S/P Urgent sternotomy with aortic and bicaval cannulation/Radical mitral valve repair [34 mm band annuloplasty, triangular resection at the P1 and P2 cleft of torn cords with primary repair, placement of 4 [place]-Amador cords to P1/P2/P3], by Dr. Mota,
04/17/24, pod#0
-Acute mitral valve flail/torn cord (type II pathology) with severe insufficiency resulting in respiratory failure
-Acute diastolic CHF
-Hyperdynamic LV of 70-75%, improved to 60-65% postop
-Hyperlipidemia
-Class 1 obesity (BMI 3..7)
-Hypertension
-History of arrhythmias
-ETOH use
-Colon polyps
-Right and left heart cath on this admission with elevated wedge pressures
-Acute postop blood loss/Anemia (stable without transfusion)
-Acute postop hypovolemia with subsequent hypervolemia
-Acute postop atelectasis
-Preop pulmonary edema
-Prop and postop renal insufficiency
Discussed patient care with: Cardiology, Nursing and Respiratory Therapy
Subjective
Procedure
Urgent sternotomy with aortic and bicaval cannulation/Radical mitral valve repair [34 mm band annuloplasty, triangular resection at the P1 and P2 cleft of torn cords with primary repair, placement of 4 [place]-Amador cords to P1/P2/P3], by Dr. Mota,
04/17/24
-
Date of Service: April 18, 2024
Pt is sedated on Precedex and intubated. Follows commands and moves extremities appropriately off sedation
Objective Data
-
Lab Results
04/18/24 03:32
04/18/24 03:32
PT 17.0 Sec (11.4-14.6) H 04/17/24 23:37
INR 1.41 04/17/24 23:37
APTT 29.3 Sec (23.4-35.0) 04/17/24 23:37
Vital Signs
Vital Signs
Temp Pulse Resp BP Pulse Ox
99.9 F 83 18 111/83 99
04/18/24 05:03 04/18/24 05:00 04/18/24 05:03 04/18/24 04:00 04/18/24 05:03
CT Intake/Output/Weight
04/17/24 04/17/24 04/18/24
06:59 18:59 06:59
Intake Total 666.0 / 666.0
Output Total 400 / 1410 1010 / 1410
Balance -400 / -744.0 -344.0 / -744.0
SaO2: 99 (SIMV, 600, 16, 5, 60%)
Physical Exam
-
General: Awake, Oriented and AOx3
Cardiovascular: Regular rate & rhythm, No Murmurs, No Rub and No Gallop
Respiratory: Decreased Breath Sounds (at bases)
Sternum: Stable
Incision: Clean, Dry, Intact and Dressing Intact
Extremities: No Edema
Data Reviewed
-
Lab Results: Results Reviewed
Medications: Active Meds Reviewed
Chest X-Ray: Report Reviewed and Image Reviewed
ECG: Report Reviewed and Image Reviewed
[2024-04-18] MEDS: TYLENOL PO ×2 (05:24→14:12)
[2024-04-18 05:36] LABS: B.E. 2.2 mmol/L; HCO3 25.1 mmol/L (21-28); O2 Saturation % 98.4 % (94-98); PCO2 33 mmHg (35-48); PO2 111 mmHg (83-108); pH 7.49 (7.35-7.45)
[2024-04-18] MEDS: ANCEF 5 IV ×3 (05:55→21:30)
[2024-04-18 06:02] LABS: Glucose - Point of Care 115 mg/dl (70-99)
--- NOTE | 2024-04-18 07:00 | PTCARENOTE ---
Assumed care of patient from night shift manager RN. Intubated and sedated on handoff, # 8 ETT at 24 Lt lip. Vent AC 60 % 16 peep 5 tv 600 pulse ox 98%. SR on monitor 80's. Epicardial wire to back up of VVI 40. No pacing noted at present. RT IJ swan
at 50. Lt radial A line transducing. Lines leveled, recalibrated and flushed. Chest tubes x 2 to - 20 cm suction. No air leak or crepitus noted. Abdomen round, distended, with positive bowel sounds t/o. Peace draining clear yellow urine. DP
and radial pulses easily palpable. Drips infusing as follows: Precedex, dobutamine, insulin. See flow sheet for titrations/totals.
--- NOTE | 2024-04-18 07:32 | PTCARENOTE ---
Awoke spontaneously. Gagging on ETT, diaphoretic, BP elevated, calm and able to follow voice commands, shook head yes to pain. Precedex increased at this time and dilaudid administered for pain. Awaiting rounds for plan. Resting calmly after.
[2024-04-18 08:05] LABS: Glucose - Point of Care 110 mg/dl (70-99)
[2024-04-18] MEDS: NEURONTIN PO (08:21)
[2024-04-18] MEDS: MAGNESIUM OXIDE PO ×2 (08:21→19:26)
[2024-04-18] MEDS: VITAMIN C PO (08:21)
[2024-04-18] MEDS: LOW STRENGTH ASPIRIN PO (08:21)
[2024-04-18] MEDS: LOPRESSOR PO (08:21)
[2024-04-18] MEDS: SENOKOT-S PO (08:21)
[2024-04-18] MEDS: PROTONIX PO (08:21)
[2024-04-18] MEDS: LIDOCAINE 4% PATCH 1 PATCH TOPICAL (08:29)
[2024-04-18] MEDS: BACTROBAN 2% OINTMENT 1 APPLIC NASAL ×2 (08:31→19:26)
--- NOTE | 2024-04-18 08:34 | CON.INTV ---
Consultation
Consultation Request
Date/Time Consultation Requested: 04/17/20242242
Date/Time Consultation Performed: 04/18/2024827
Requesting Provider: Monica Knowles PA-C
Performing Provider: Bossman Stoner MD
Reason for Consultation: s/p MV repair
Medical History
-
Chief Complaint: Lightheadedness, dizzy, & blurry vision
History of Present Illness:
54-year-old male with a past medical history of hypertension + hyperlipidemia who presented with dizziness, lightheadedness and blurry vision. He said that his heart rate was over 110 and that is normally in the 60s. He also had chest tightness
with breathing. Initial vitals in the ER showed he was afebrile to 98.7 �F, pulse rate 89, breathing at 18 breaths minute, BP 116/80 and saturating 100% on room air. Initial labs showed Hb 14.5, initial troponin elevated at 0.126, TSH 1.65, UA
with trace leukocyte esterase and COVID antigen negative. Initial EKG showed NSR with no signs of acute ischemia. Cardiology consulted due to notable murmur heard on examination. Bedside echo revealed significant mitral regurgitation with flail
posterior leaflet of the mitral valve with borderline hyperdynamic LV function. Heparin drip started in the ER in addition to aspirin, nitroglycerin and given NS 0.9% x 1L. He was urgently brought to the [facility] showing no significant CAD with
elevated filling pressures with PCWP of 20, mild pulmonary hypertension with reduced cardiac index of 1.9 and at least moderate�severe mitral regurgitation. He was initially admitted to the IVU for acute coronary syndrome. Cardiothoracic surgery
was consulted and patient had increased respiratory distress and worsening hypoxia. Patient brought to the OR with intraoperative ALEXANDER showing severe mitral regurgitation with ruptured chordae with flail segment and hyperdynamic LV with EF of
70-75%. Patient underwent urgent sternotomy with radical mitral valve repair. There were no immediate complications and he was transferred to the CVICU postoperatively. Manager Exchange service is now consulted for additional
management/recommendations.
When I saw the patient, he was in bed on nasal cannula at 3 L/min saturating 97%. Heart rate 87, BP via A-line 119/65, PAP: 40/22, and CVP 9. BP via NIBP: 101/72. He is currently on dobutamine drip at 2.5 mcg/kg/min, Levophed at 2mcg/min and
insulin drip at 2.5 units/hr. Patient's , Keren, as well as children are at bedside and all questions were answered. The patient still has some shortness of breath but denies chest pain, THOMAS, abdominal pain, nausea, fevers or chills. He was
febrile overnight to Tmax: 100.9 �F.
PMHx: Hypertension, hyperlipidemia
PSHx: Variceal surgery, vein repair in left groin (2005)
Past Medical History
Past Medical History: Other (Above as per HPI)
Past Surgical History: Other (Above as per HPI)
Social History
Tobacco: Other (Chew tobacco in the otherwise he is a non-smoker)
Alcohol: Occasional
Drug: None
Personal:
Living: With Family
Family History
Family History: CAD (Father: CAD with history of CABG x 3; Brother: History of DC s/p stent), Cancer (Mother: Breast cancer; maternal grandfather: Gastric cancer; Brother: Multiple myeloma; Brother: Prostate cancer; Sister: Colon cancer) and Other
(Father: Alzheimer's disease; maternal grandmother: Fatal CVA)
Allergies / Home Medications
Allergies
Allergy/AdvReac Type Severity Reaction Status Date / Time
No Known Allergies Allergy Verified 03/15/13 17:34
Home Medications
�Medication �Instructions �Recorded �Confirmed �Last Taken �Type
losartan 100 mg tablet 100 mg PO DAILY 04/17/24 04/17/24 04/16/24 20:00 History
rosuvastatin 10 mg tablet 10 mg PO HS 04/17/24 04/17/24 04/16/24 20:00 History
Review of Systems
-
History Source: Patient
All other systems: Negative unless noted
Vitals / Labs / Diagnostic Testing
Vital Signs
Temp Pulse Resp BP Pulse Ox
98.7 F 81 13 106/80 97
04/18/24 09:02 04/18/24 10:20 04/18/24 10:20 04/18/24 10:00 04/18/24 10:20
Lab Data
04/18/24 03:32
04/18/24 03:32
Laboratory Results
04/17/24 04/17/24 04/18/24
09:48 23:37 03:33
PT 17.0 H
INR 1.41
APTT Cancelled 29.3
pH 7.31 L 7.45
pCO2 41 38
pO2 65 L 158 H
HCO3 20.6 L 26.4
O2 Delivery Level
04/18/24 04/18/24 04/18/24
05:29 08:44 10:03
PT
INR
APTT
pH 7.49 H 7.47 H 7.43
pCO2 33 L 34 L 41
pO2 111 H 89 83
HCO3 25.1 24.7 27.2
O2 Delivery Level
Diagnostic Testing:
Physical Exam
-
HEENT: Normocephalic and Anicteric
Cardiovascular: S1/S2 and Peripheral Edema (trace in LLE, none in RLE)
Respiratory: Wheeze (negative), Rales (negative), Rhonchi (negative) and Non-Labored Respirations
GI: Soft, Distended (Abdominal obesity), Non Tender and Normal Bowel Sounds
Neurology: AO x 3 and Tremors (negative)
Skin: Warm and Dry
General: Respiratory Distress (negative), Comfortable, Pain (negative), Chills (negative) and Sweats (negative)
Assessment
-
Assessment: 54-year-old male with a past medical history of hypertension + hyperlipidemia who presented with dizziness, lightheadedness and blurry vision. He said that his heart rate was over 110 and that is normally in the 60s. He also had chest
tightness with breathing. Initial vitals in the ER showed he was afebrile to 98.7 �F, pulse rate 89, breathing at 18 breaths minute, BP 116/80 and saturating 100% on room air. Initial labs showed Hb 14.5, initial troponin elevated at 0.126, TSH
1.65, UA with trace leukocyte esterase and COVID antigen negative. Initial EKG showed NSR with no signs of acute ischemia. Cardiology consulted due to notable murmur heard on examination. Bedside echo revealed significant mitral regurgitation
with flail posterior leaflet of the mitral valve with borderline hyperdynamic LV function. Heparin drip started in the ER in addition to aspirin, nitroglycerin and given NS 0.9% x 1L. He was urgently brought to the [facility] showing no significant
CAD with elevated filling pressures with PCWP of 20, mild pulmonary hypertension with reduced cardiac index of 1.9 and at least moderate�severe mitral regurgitation. He was initially admitted to the IVU for acute coronary syndrome. Cardiothoracic
surgery was consulted and patient had increased respiratory distress and worsening hypoxia. Patient brought to the OR with intraoperative ALEXANDER showing severe mitral regurgitation with ruptured chordae with flail segment and hyperdynamic LV with EF
of 70-75%. Patient underwent urgent sternotomy with radical mitral valve repair. There were no immediate complications and he was transferred to the CVICU postoperatively. Manager Exchange service is now consulted for additional
management/recommendations.
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
Impression:
#Acute mitral valve insufficiency due to ruptured cord s/p radical mitral valve repair (POD #1)
#Acute systolic and diastolic heart failure/acute HFpEF exacerbation
#Acute anemia
#Elevated troponin (0.126 on 04/17/2024)
#Acute respiratory failure with hypoxia
#Hyperlipidemia
#Hypertension
Plan:
Extubated this morning to nasal cannula and he is currently breathing comfortably on 3 L/min saturating 97%
Continue to wean supplemental oxygen as tolerated to maintain SpO2 >90-94%
prn nebulized bronchodilators - not currently bronchospastic
Pulmonary artery catheter parameters will be followed
Pressors/antihypertensive/inotropes/diuretics will be provided as needed
Maintain MAP>65
Replete electrolytes with K>4, Mg>2
Monitor chest tube output
Monitor hemoglobin
Monitor platelet count and coags
Transfuse blood products as needed to maintain Hb>7g/dL, plt>50k (given post-operative status)
CT surgery managing chest tubes
Monitor blood sugar to maintain euglycemia with goal BG 140-180
Insulin drip per protocol
Aspiration precautions
Encourage incentive spirometer use 10 x per hour for at least 4 hours a day
DVT prophylaxis
Early nutrition
Early mobilization
Critical care statement: A total of 42 minutes of critical care time was provided for this patient today. This includes management of ventilator, spontaneous breathing trial, arterial blood gases, pressors, of unstable vital signs, evaluation of the
patient at bedside, reviewing the patient's pertinent medical records including radiographs, microbiology, laboratory evaluations, and discussion with primary team and critical care nursing.
Data:
CXR 04/18/2024: Stable postoperative changes with no pneumothorax; stable right pleural effusion/pleural fluid collection
[2024-04-18 08:39] LABS: Glycohemoglobin (HgbA1c) 5.4 % (4.0-5.6)
[2024-04-18 08:53] LABS: B.E. 1.4 mmol/L; HCO3 24.7 mmol/L (21-28); O2 Saturation % 98.6 % (94-98); PCO2 34 mmHg (35-48); PO2 89 mmHg (83-108); Potassium 4.8 mMOL/L (3.5-5.1); pH 7.47 (7.35-7.45)
[2024-04-18 10:06] LABS: Glucose - Point of Care 104 mg/dl (70-99)
[2024-04-18 10:24] LABS: B.E. 2.6 mmol/L; HCO3 27.2 mmol/L (21-28); O2 Saturation % 98.7 % (94-98); PCO2 41 mmHg (35-48); PO2 83 mmHg (83-108); pH 7.43 (7.35-7.45)
--- NOTE | 2024-04-18 10:43 | RESPNOTE ---
pt extubated to at 1035 to 6lpm of nasal cannula. o2 sats of 97% noted
--- NOTE | 2024-04-18 10:46 | PTCARENOTE ---
CPAP trial tolerated well by patient. ABG drawn and results acceptable to extubate. Extubated to 6 L pulse ox 95%. Family updated and at bedside after
[2024-04-18] MEDS: LASIX 60 MG IV ×2 (10:56→16:48)
[2024-04-18] MEDS: KCL 50 IV (11:22)
[2024-04-18] MEDS: ROXICODONE 5 MG PO ×3 (11:47→21:28)
[2024-04-18] MEDS: LOW STRENGTH ASPIRIN 81 MG PO (11:47)
[2024-04-18 11:54] LABS: Glucose - Point of Care 109 mg/dl (70-99)
--- NOTE | 2024-04-18 12:18 | W.PN.CD ---
Today's Communication / Plan
-
Respiratory evaluation with possible extubation later today.
Weaning of pressor support
As tolerated diuresis
Impression / Plan
-
54-year-old male with hypertension, hyperlipidemia, mild obesity, and family history of coronary artery disease (brother and father) presenting with chest pain and shortness of breath and noted to have acute severe mitral regurgitation due to flail
posterior leaflet rupture
Acute heart failure
-Severe acute heart failure NYHA class IV,
-Urgent left heart cath on 04/17/2024
Elevated filling pressure with mild pulmonary hypertension. Hyperdynamic LV with EF 65%
No significant CAD
-Acute heart failure due to mitral valve flail/torn cord
-Urgent CT surgery evaluation and repair on 04/17/2024
-[place] and A-line in place.
-Wean off dobutamine.
Mitral valve repair
-Acute mitral valve flail and torn cord
-S/p sternotomy with aortic and bicaval cannulation with mitral valve repair with 34 mm band annuloplasty, triangular resection of P1 and P2 cleft of the torn cords with primary repair and placement of 4 [place]-Amador cords to P1, P2 and P3 by Dr. Mota.
On 04/17/2024
-Significant respiratory failure with pulmonary edema-significantly improved with mitral valve repair
-Remained intubated overnight.
-Monitor chest tube outcomes.
Physical Exam
Vital Signs/Labs
Vital Signs
Temp Pulse Resp BP Pulse Ox
98.3 F 83 19 119/81 95
04/18/24 11:53 04/18/24 11:55 04/18/24 11:55 04/18/24 11:00 04/18/24 11:55
04/17/24 04/18/24 04/19/24
06:59 06:59 06:59
Actual Weight 115.2 kg
04/18/24 03:32
04/18/24 03:32
PT 17.0 Sec (11.4-14.6) H 04/17/24 23:37
INR 1.41 04/17/24 23:37
APTT 29.3 Sec (23.4-35.0) 04/17/24 23:37
Magnesium 2.3 mg/dl (1.6-2.3) 04/18/24 03:32
Triglycerides 116 mg/dl (10-149) 04/18/24 03:32
LDL Cholesterol, Calc 51 mg/dl 04/18/24 03:32
VLDL Cholesterol, Calc 23 mg/dl (0-30) 04/18/24 03:32
HDL Cholesterol 56 mg/dl 04/18/24 03:32
LAB Results
04/17/24
09:05
Troponin I 0.126 H*
Physical Exam
Constitutional: No acute distress and Comfortable
EENT: Anicteric and Moist mucous membranes
Cardiovascular: Rhythm & rate is regular, Pedal edema is absent and JVD pressure is normal
Respiratory: Respiratory effort normal and Other (ET tube in place.)
GI: Soft, Non tender and Normal bowel sounds
Neuro/Psych: Other (Intubated and sedated with Precedex.)
Other: Skin
Data Reviewed
-
Date of Service: April 18, 2024
Medical Decision Making: Reviewed Test Results, Independent Historian Assessment, Test Interpretation and Review of Case with other Provider
EKG: Tracing Personally Visualized and interpreted
Echo: Report Reviewed by me
X-Ray/CT/US/MRI/NUC/PET: Image Personally Visualized and interpreted
Labs: Labs Reviewed by me
Old Records: Reviewed
Critical Care Time (in minutes): 45
[2024-04-18 14:07] LABS: Glucose - Point of Care 88 mg/dl (70-99)
[2024-04-18] MEDS: FERRLECIT 110 MG IV (14:11)
[2024-04-18] MEDS: FLEXERIL 5 MG PO ×2 (14:23→23:07)
[2024-04-18] MEDS: DILAUDID 0.25 MG IV (14:24)
--- NOTE | 2024-04-18 14:30 | W.PN.ANS.POP ---
Anesthesia Post Operative
- Anesthesia Post Op Note
Vital Signs Stable-See Nursing Note: Yes
Airway Patent: Yes
Adequate Pain Control: Yes
Change in Mental Status: No
Current Postoperative Nausea & Vomiting: No
Anesthesia Complications: No
General Anesthetic Recall: No
Unplanned Admission: No
Post Op Hydration Adequate: Yes
[2024-04-18 16:14] LABS: Glucose - Point of Care 106 mg/dl (70-99)
[2024-04-18] MEDS: NEURONTIN 100 MG PO ×2 (16:15→21:28)
[2024-04-18 16:16] LABS: Blood Urea Nitrogen 28 mg/dl (9-20); Calcium 9.3 mg/dl (8.4-10.2); Carbon Dioxide 22 mmol/L (22-30); Chloride 107 mmol/L (98-107); Estimated Creatinine Clearance 81 ml/min; Glucose 115 mg/dl (70-99); Potassium 4.6 mmol/L (3.5-5.1); Sodium 142 mmol/L (135-145); eGFR 58.99
--- NOTE | 2024-04-18 16:19 | PTCARENOTE ---
Assist x 2 oob to chair. Initially bp dropped down to 60's systolic but quickly rebounded with rest. No dumping noted from chest tubes. Dobutamine decreased at this time also as per PA order. Family at bedside Pain well controlled. Will
continue to monitor.
[2024-04-18] MEDS: KCL 10 MEQ PO (16:47)
[2024-04-18 18:02] LABS: Glucose - Point of Care 117 mg/dl (70-99)
--- NOTE | 2024-04-18 18:14 | PTCARENOTE ---
Assisted back to bed. RT IJ swan removed, LT radial A line also removed. Manual pressure applied x 5 minutes, hemostasis achieved. Resting w/ family. Will, Monitor closely.
[2024-04-18 19:13] LABS: Glucose - Point of Care 110 mg/dl (70-99)
[2024-04-18] MEDS: SENOKOT-S 1 TABLET PO (19:26)
--- NOTE | 2024-04-18 19:45 | PTCARENOTE ---
Received pt from [facility]. pt resting comfortably in bed. pt is AAOX4, states pain 01/28, see MAR. NSR on monitor. VSS. heart sounds audible, radial and DP pulses palpable, trace generalized edema, temp epicardial AV wires set to VVI rate of 40, MA
of 8, Mv of 4. lungs diminished throughout, spo2 95% on 3 LNC, x2 MS CT to -20 wall suction, no air leaks, no tidaling, no crepitus. hyperactive BSx 4 quadrants, passing meron, abdomen soft non tender. pt voiding clear yellow urine after drake
catheter removed at [address] [facility]. surgical sites maintained. right IJ cordis and PIV maintained. insulin and dobutamine gtt infusing. call santos within reach. will continue to monitor.
[2024-04-18 20:09] LABS: Glucose - Point of Care 113 mg/dl (70-99)
[2024-04-18 21:20] LABS: Glucose - Point of Care 98 mg/dl (70-99)
[2024-04-18] MEDS: TYLENOL 1000 MG PO (21:28)
[2024-04-18] MEDS: PACERONE 200 MG PO (21:29)
[2024-04-18] MEDS: CRESTOR 10 MG PO (21:30)
[2024-04-18 23:05] LABS: Glucose - Point of Care 121 mg/dl (70-99)
[2024-04-19] VITALS (36 sets, daily range): BP systolic 105–148; BP diastolic 69–92; PULSE 88–89; BMI 31.7
--- NOTE | 2024-04-19 | PTCARENOTE ---
Pt assessment unchanged. NSR on monitor, VSS. on going pain management, see MAR. call santos within reach. will continue to monitor.
[2024-04-19 00:57] LABS: Glucose - Point of Care 116 mg/dl (70-99)
[2024-04-19] MEDS: NSS 500 IV ×2 (00:59→21:32)
[2024-04-19] MEDS: DILAUDID 0.5 MG IV (03:13)
[2024-04-19 03:19] LABS: Glucose - Point of Care 99 mg/dl (70-99)
--- NOTE | 2024-04-19 04:00 | PTCARENOTE ---
Pt assessment unchanged. NSR on monitor. VSS. bladder scanned at 0330 due to low urine output. 262mls of urine in bladder via scan. will continue to monitor. call santos within reach.
[2024-04-19 04:17] LABS: Magnesium 2.2 mg/dl (1.6-2.3)
--- NOTE | 2024-04-19 04:38 | W.PN.CT ---
Today's Communication / Plan
-
Plan:
-No major issues overnight. Hemodynamically and neurologically intact
-Successfully extubated yesterday 04/18 @ 1035 AM
-Dobutamine weaned to 1.5 mcg/kg/min, on insulin gtt per protocol- will d/c today
-Monitor chest tube output: 2meds 130/270
-Cont. diuresis, replete electrolytes
-Cont. current meds (ASA, Crestor, Amiodarone, BB currently on hold while on dobutamine)
-Transfer to tele phase when able to wean of dobutamine, and when insulin gtt is off per protocol
-Maintain cordis
-Maintain temporary PW
-Wean off of O2 as tolerated
-Encourage use of IS
-OOB into chair/Ambulate
Assessment / Plan
-
Assessment:
-S/P Urgent sternotomy with aortic and bicaval cannulation/Radical mitral valve repair [34 mm band annuloplasty, triangular resection at the P1 and P2 cleft of torn cords with primary repair, placement of 4 [place]-Amador cords to P1/P2/P3], by Dr. Mota,
04/17/24, pod#1
-Acute mitral valve flail/torn cord (type II pathology) with severe insufficiency resulting in respiratory failure
-Acute diastolic CHF
-Hyperdynamic LV of 70-75%, improved to 60-65% postop
-Hyperlipidemia
-Class 1 obesity (BMI 3..7)
-Hypertension
-History of arrhythmias
-ETOH use
-Colon polyps
-Right and left heart cath on this admission with elevated wedge pressures
-Acute postop blood loss/Anemia (stable without transfusion)
-Acute postop hypovolemia with subsequent hypervolemia
-Acute postop atelectasis
-Preop pulmonary edema
-Prop and postop renal insufficiency
Discussed patient care with: Cardiology, Nursing, Respiratory Therapy, Pharmacy and Care Team
Subjective
Procedure
Urgent sternotomy with aortic and bicaval cannulation/Radical mitral valve repair [34 mm band annuloplasty, triangular resection at the P1 and P2 cleft of torn cords with primary repair, placement of 4 [place]-Amador cords to P1/P2/P3], by Dr. Mota,
04/17/24
-
Date of Service: April 19, 2024
Pt c/o mild incisional pain, otherwise feels well
Objective Data
-
PT 17.0 Sec (11.4-14.6) H 04/17/24 23:37
INR 1.41 04/17/24 23:37
APTT 29.3 Sec (23.4-35.0) 04/17/24 23:37
Vital Signs
Vital Signs
Temp Pulse Resp BP Pulse Ox
98.8 F 81 17 123/69 98
04/19/24 00:57 04/19/24 03:20 04/19/24 03:20 04/19/24 03:16 04/19/24 03:20
CT Intake/Output/Weight
04/18/24 04/18/24 04/19/24
06:59 18:59 06:59
Intake Total 803.1 / 803.1 1561.6 / 1706.2 144.6 / 1706.2
Output Total 1140 / 1540 1840 / 1925 85 / 1925
Balance -336.9 / -736.9 -278.4 / -218.8 59.6 / -218.8
SaO2: 98 (3L)
Physical Exam
-
General: Awake, Oriented and AOx3
Cardiovascular: Regular rate & rhythm, No Murmurs, No Rub and No Gallop
Respiratory: Decreased Breath Sounds (at bases, otherwise clear)
Sternum: Stable
Incision: Clean, Dry, Intact and Dressing Intact
Extremities: Other (+trace edema)
Data Reviewed
-
Lab Results: Results Reviewed
Medications: Active Meds Reviewed
Chest X-Ray: Report Reviewed and Image Reviewed
ECG: Report Reviewed and Image Reviewed
[2024-04-19 05:08] LABS: Glucose - Point of Care 104 mg/dl (70-99)
[2024-04-19] MEDS: TYLENOL 1000 MG PO ×3 (05:16→21:31)
[2024-04-19] MEDS: ROXICODONE 5 MG PO ×3 (05:16→19:40)
[2024-04-19 05:26] LABS: Hematocrit 30.7 % (39.0-52.0); Hemoglobin 10.6 g/dL (13.0-18.0); Mean Corp Hgb Conc. 34.5 g/dL (33.0-37.0); Mean Corpuscular Hgb 32.8 pg (27.0-31.0); Platelet Count 130 10^3/uL (130-400); Red Blood Cell Count 3.23 10^6/uL (4.70-6.10); Red Cell Dist. Width 13.2 % (11.5-14.5); White Blood Cell Count 10.1 10^3/uL (4.8-10.8)
[2024-04-19 05:45] LABS: Blood Urea Nitrogen 35 mg/dl (9-20); Calcium 8.8 mg/dl (8.4-10.2); Carbon Dioxide 27 mmol/L (22-30); Chloride 103 mmol/L (98-107); Estimated Creatinine Clearance 87 ml/min; Glucose 101 mg/dl (70-99); Potassium 4.2 mmol/L (3.5-5.1); Sodium 140 mmol/L (135-145); eGFR > 60.00
[2024-04-19 06:50] LABS: Glucose - Point of Care 95 mg/dl (70-99)
[2024-04-19] MEDS: LOPRESSOR 12.5 MG PO ×2 (08:31→14:00)
[2024-04-19] MEDS: NEURONTIN 100 MG PO ×3 (08:31→21:31)
[2024-04-19] MEDS: MAGNESIUM OXIDE 500 MG PO ×2 (08:31→19:40)
[2024-04-19] MEDS: LOW STRENGTH ASPIRIN 81 MG PO (08:31)
[2024-04-19] MEDS: PROTONIX 40 MG PO (08:31)
[2024-04-19] MEDS: FLEXERIL 5 MG PO (08:31)
[2024-04-19] MEDS: PACERONE 200 MG PO ×3 (08:31→21:31)
[2024-04-19] MEDS: VITAMIN C 500 MG PO (08:32)
[2024-04-19] MEDS: BACTROBAN 2% OINTMENT 1 APPLIC NASAL ×2 (08:32→20:34)
[2024-04-19] MEDS: SENOKOT-S 1 TABLET PO ×2 (08:32→19:40)
[2024-04-19] MEDS: LIDOCAINE 4% PATCH 1 PATCH TOPICAL (08:32)
--- NOTE | 2024-04-19 08:54 | W.PN.CD ---
Today's Communication / Plan
-
-Chest tube likely removed today.
-Out of bed to the chair and ambulate.
-Incentive spirometry
Impression / Plan
-
54-year-old male with hypertension, hyperlipidemia, mild obesity, and family history of coronary artery disease (brother and father) presenting with chest pain and shortness of breath and noted to have acute severe mitral regurgitation due to flail
posterior leaflet rupture
Acute heart failure
-Severe acute heart failure NYHA class IV,
-Urgent left heart cath on 04/17/2024
Elevated filling pressure with mild pulmonary hypertension. Hyperdynamic LV with EF 65%
No significant CAD
-Acute heart failure due to mitral valve flail/torn cord
-Urgent CT surgery evaluation and repair on 04/17/2024
-Wean off dobutamine.
Mitral valve repair
-Acute mitral valve flail and torn cord
-S/p sternotomy with aortic and bicaval cannulation with mitral valve repair with 34 mm band annuloplasty, triangular resection of P1 and P2 cleft of the torn cords with primary repair and placement of 4 [place]-Amador cords to P1, P2 and P3 by Dr. Mota.
On 04/17/2024
-Significant respiratory failure with pulmonary edema-significantly improved with mitral valve repair
-Remove chest tube.
-On aspirin, amiodarone, metoprolol and Crestor
-With metoprolol started dobutamine as off now.
Physical Exam
Vital Signs/Labs
Vital Signs
Temp Pulse Resp BP Pulse Ox
98.7 F 96 20 118/84 96
04/19/24 04:00 04/19/24 08:31 04/19/24 06:52 04/19/24 08:31 04/19/24 06:52
04/18/24 04/19/24 04/20/24
06:59 06:59 06:59
Actual Weight 115.2 kg 114.9 kg
04/19/24 04:58
04/19/24 04:58
PT 17.0 Sec (11.4-14.6) H 04/17/24 23:37
INR 1.41 04/17/24 23:37
APTT 29.3 Sec (23.4-35.0) 04/17/24 23:37
Magnesium 2.2 mg/dl (1.6-2.3) 04/19/24 03:06
Triglycerides 116 mg/dl (10-149) 04/18/24 03:32
LDL Cholesterol, Calc 51 mg/dl 04/18/24 03:32
VLDL Cholesterol, Calc 23 mg/dl (0-30) 04/18/24 03:32
HDL Cholesterol 56 mg/dl 04/18/24 03:32
LAB Results
04/17/24
09:05
Troponin I 0.126 H*
Physical Exam
Constitutional: No acute distress and Comfortable
EENT: Anicteric and Moist mucous membranes
Cardiovascular: Rhythm & rate is regular, Pedal edema is absent and JVD pressure is normal
Respiratory: Respiratory effort normal, Lungs clear to auscul. and Wheeze Absent
GI: Soft, Non tender and Normal bowel sounds
Neuro/Psych: Alert, Oriented, AO x 3 and Motor deficits absent
Data Reviewed
-
Date of Service: April 19, 2024
Medical Decision Making: Reviewed Test Results, Independent Historian Assessment and Test Interpretation
EKG: Tracing Personally Visualized and interpreted
Echo: Report Reviewed by me
Labs: Labs Reviewed by me
Old Records: Reviewed
--- NOTE | 2024-04-19 08:55 | W.PN.INTV ---
Today's Communication / Plan
Recommendations
Up OOB as tolerated
Wean off dobutamine as tolerated
Trend H&H + platelet count transfusion to keep Hb >7 g/dL and platelets >50k
Cardiac rehab consult
Pain control
Encourage incentive spirometer use
Patient has been downgraded to CVICU�telemetry status. [facility]/Pulmonary service will now sign off. Please reconsult if there are any additional questions/concerns, or if patient's respiratory status deteriorates.
Assessment
-
Assessment: 54-year-old male with a past medical history of hypertension + hyperlipidemia who presented with dizziness, lightheadedness and blurry vision. He said that his heart rate was over 110 and that is normally in the 60s. He also had chest
tightness with breathing. Initial vitals in the ER showed he was afebrile to 98.7 �F, pulse rate 89, breathing at 18 breaths minute, BP 116/80 and saturating 100% on room air. Initial labs showed Hb 14.5, initial troponin elevated at 0.126, TSH
1.65, UA with trace leukocyte esterase and COVID antigen negative. Initial EKG showed NSR with no signs of acute ischemia. Cardiology consulted due to notable murmur heard on examination. Bedside echo revealed significant mitral regurgitation
with flail posterior leaflet of the mitral valve with borderline hyperdynamic LV function. Heparin drip started in the ER in addition to aspirin, nitroglycerin and given NS 0.9% x 1L. He was urgently brought to the [facility] showing no significant
CAD with elevated filling pressures with PCWP of 20, mild pulmonary hypertension with reduced cardiac index of 1.9 and at least moderate�severe mitral regurgitation. He was initially admitted to the IVU for acute coronary syndrome. Cardiothoracic
surgery was consulted and patient had increased respiratory distress and worsening hypoxia. Patient brought to the OR with intraoperative ALEXANDER showing severe mitral regurgitation with ruptured chordae with flail segment and hyperdynamic LV with EF
of 70-75%. Patient underwent urgent sternotomy with radical mitral valve repair. There were no immediate complications and he was transferred to the CVICU postoperatively. [facility] service is now consulted for additional
management/recommendations.
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
Impression:
#Acute mitral valve insufficiency due to ruptured cord s/p radical mitral valve repair (POD #2)
#Acute systolic and diastolic heart failure/acute HFpEF exacerbation
#Acute anemia
#Elevated troponin (0.126 on 04/17/2024)
#Acute respiratory failure with hypoxia
#Hyperlipidemia
#Hypertension
Plan:
Extubated yesterday morning to nasal cannula and he is currently breathing comfortably on room air saturating 93%
Maintain SpO2 >90-94%
prn nebulized bronchodilators - not currently bronchospastic
Encourage incentive spirometer use 10x/hr for at least 4 hrs a day
Pressors/antihypertensive/inotropes/diuretics will be provided as needed - remains on dobutamine gtt - wean as tolerated while trending MAP + SBP
Maintain MAP>65
Replete electrolytes with K>4, Mg>2
Monitor chest tube output (mediastinal chest tubes x 2) - to be removed today
Monitor hemoglobin
Monitor platelet count and coags
Transfuse blood products as needed to maintain Hb>7g/dL, plt>50k (given post-operative status)
CT surgery managing chest tubes
Monitor blood sugar to maintain euglycemia with goal BG 140-180
Insulin drip has been weaned off - continue SQ insulin to keep BG at goal as above
Aspiration precautions
Encourage incentive spirometer use 10 x per hour for at least 4 hours a day
DVT prophylaxis
Early nutrition
Early mobilization
Patient has been downgraded to CVICU�telemetry status. [facility]/Pulmonary service will now sign off. Thank you for allowing us to be involved in the care of this patient. Please reconsult if there are any additional questions/concerns, or if
patient's respiratory status deteriorates.
Data:
CXR 04/18/2024: Stable postoperative changes with no pneumothorax; stable right pleural effusion/pleural fluid collection
CXR 04/19/2024: Postoperative changes with interval removal of [place]-Sweta catheter and endotracheal tube; no pneumothorax
Total time spent today was 75 minutes for this encounter. Time includes reviewing laboratory test/imaging results, reviewing pertinent medical records, obtaining and reviewing medical history, performing an appropriate exam, ordering medications,
tests and procedures. Time also includes documentation of this encounter, coordinating patient care and communicating with other healthcare professionals. Total time does not include separately billed tests performed on this date of service.
Subjective Dataa
Subjective Data
Date of Service:
Date of Service: April 19, 2024
Chief Complaint: [facility] Follow Up
Subjective:
Patient was seen and evaluated today at bedside. Patient's at bedside and all questions were answered. Heart rate 76 and BP 121/89. He is currently on room air saturating 94%. He is currently on dobutamine at 1.5mcg/kg/min. He feels much
better today. He denies SOB, THOMAS, abdominal pain, fevers or chills.
Review of Systems
General: Other (Negative unless mentioned above)
Objective Data
Data Reviewed
Vital Signs / I&O / Oxygen:
Vital Signs
Temp Pulse Resp BP Pulse Ox
98.4 F 81 20 126/92 87
04/19/24 08:00 04/19/24 09:15 04/19/24 08:00 04/19/24 09:00 04/19/24 08:45
Intake and Output
04/18/24 04/19/24 04/20/24
06:59 06:59 06:59
Intake Total 803.1 / 803.1 1767.8 / 1767.8 495.1 / 495.1
Output Total 1540 / 1540 2200.7 / 2200.7 0 / 0
Balance -736.9 / -736.9 -432.9 / -432.9 495.1 / 495.1
SaO2 [SIMV] 97
SaO2 [A/C] 100
SaO2 87
Nasal Cannula flow liters per 2
minute
Physical Exam
General: Respiratory Distress (negative), Comfortable, Chills (negative) and Sweats (negative)
HEENT: Normocephalic and Anicteric
Cardiovascular: S1-S2 and Peripheral Edema (negative)
Respiratory: Clear, Wheeze (negative), Crackles (negative), Rhonchi (negative), Non-Labored Respirations and Chest Tube (Mediastinal chest tubes x 2)
GI: Soft, Non Distended, Non Tender and Normal Bowel Sounds
Neurology: AO x 3 and Tremors (negative)
Skin: Warm, Dry, Jaundice (n) and Rash (n)
Labs/Micro/Reports
Lab Data
04/19/24 04:58
04/19/24 04:58
Laboratory Results
04/18/24
10:03
pH 7.43
pCO2 41
pO2 83
HCO3 27.2
O2 Delivery Level
Microbiology
04/17/24 17:45 Blood/Venous Blood Culture - Preliminary
No Growth in 24 hours- Final report to follow
04/17/24 16:48 Blood/Venous Blood Culture - Preliminary
No Growth in 24 hours- Final report to follow
--- NOTE | 2024-04-19 09:09 | PTCARENOTE ---
Assumed care of patient from loading machine operator helper RN. ELIZABETH x 3, sitting up in chair. States he had a 'decent ' night. Pain ok at present. SR on monitor 90's. Epicardial wires to back up VVI 40. No pacing noted at present. Lungs decreased t/o
bilaterally. Pulse ox 93% 2 L , trialed on room air but only 97%. IS encouraged and pt obtaining 1500. Chest tubes x 2 to - 20 cm suction. No air leak or crepitus noted. Minimal drainage noted. Abdomen soft and round, passing flatus, bowel
sounds present t/o. Voiding in urinal, adequate amounts. DP and radial pulses palpable. Plan for day discussed.
[2024-04-19] MEDS: LASIX 60 MG IV (09:34)
[2024-04-19] MEDS: KCL 20 MEQ PO (09:34)
--- NOTE | 2024-04-19 11:27 | PTCARENOTE ---
Epicardial wires removed by CT PA. VS Q 15 minutes per protocol. Bed rest x 1 hour. Pt states understanding. Will monitor closely.
--- NOTE | 2024-04-19 12:18 | W.PN.UPDATE ---
Update Note
Progress Note Update
Epicardial pacing wires pulled at bedside without issues.
VSS, bedrest per protocol
Will D/C mediastinal chest tubes later this afternoon.
[2024-04-19] MEDS: FERRLECIT 110 MG IV (13:29)
--- NOTE | 2024-04-19 14:15 | PTCARENOTE ---
Mediastinal chest tubes x 2 removed as per PA order. Pt tolerated w/o issue. Assisted oob to chair after. Requesting pain medicine, roxycodone and scheduled tylenol administered. After approx 5 minutes pts ran out to desk stating pt felt
like his heart was racing. Pts pulse noted to be 110, regular and sinus rhythm. bp 121/89. Discussed with CT PA, order obtained, pt administered 12.5 mg PO lopressor as ordered. HR down in 80's prior to administration. Will monitor.
[2024-04-19] MEDS: DOBUTREX 500 MG 250 IV (15:03)
--- NOTE | 2024-04-19 16:28 | PTCARENOTE ---
Ambulated in hallway with RN for approx 75 feet, gait steady. Some lightheaded ness at times but over all did great!!. Pain well managed at present. VSS. Remains on 2 L as was trialed again on RA for 86%. Will continue to aggressively wean.
Assessment otherwise unchanged from prior.
--- NOTE | 2024-04-19 20:00 | PTCARENOTE ---
Received pt from dayshift. Pt resting comfortably in chair. pt assisted back to bed without difficulty. pt is AAOx4, states pain is 5/10, see MAR. NSR on monitor, VSS. heart sounds audible, radial and DP pulses palpable, no edema noted, temp
epicardial AV wires removed during dayshift by CVPA. Lungs diminished throughout, spo2 92% on 3LNC, pt encouraged to used IS, mediastinal CTx2 removed during dayshift. +BS x4 quadrants, abdomen soft non tender, pt passing gas but experiencing some
gas pain, CVPA made aware. pt voiding clear dark yellow without difficulty. surgical sites maintained. right IJ cordis and PIV maintained. dobutamine gtt infusing with plans to wean. 25mg metoprolol on hold while on dobutamine per CVPA. call santos
within reach. will continue to monitor.
[2024-04-19] MEDS: MYLICON 80 MG PO (20:35)
[2024-04-19] MEDS: CRESTOR 10 MG PO (21:31)
[2024-04-19] MEDS: DILAUDID 0.25 MG IV (23:00)
--- NOTE | 2024-04-19 23:00 | PTCARENOTE ---
Dobutamine gtt titrated down by 0.5 every hour starting at 2030 per CVPA. Infusion is now off per CVPA. Pt's vitals are stable, HR 85, BP 125/83, RR 16, Spo2 93% on 3LNC. will continue to monitor.
[2024-04-20] VITALS (20 sets, daily range): BP systolic 99–155; BP diastolic 62–94; PULSE 90; O2SAT 94; BMI 31.8
--- NOTE | 2024-04-20 | PTCARENOTE ---
Pt assessment unchanged; pt resting comfortably in bed. NSR on monitor. VSS. 0.25mg of Dilaudid given for 5/10 pain after breathing exercises, per CVPA. call santos within reach. will continue to monitor.
[2024-04-20 03:36] LABS: Blood Urea Nitrogen 32 mg/dl (9-20); Calcium 8.4 mg/dl (8.4-10.2); Carbon Dioxide 27 mmol/L (22-30); Chloride 101 mmol/L (98-107); Estimated Creatinine Clearance 103 ml/min; Glucose 123 mg/dl (70-99); Magnesium 2.2 mg/dl (1.6-2.3); Potassium 4.4 mmol/L (3.5-5.1); Sodium 137 mmol/L (135-145); eGFR > 60.00
--- NOTE | 2024-04-20 04:00 | PTCARENOTE ---
Pt assessment unchanged. NSR on monitor. VSS. pt resting in bed. on going pain management, see MAR. call santos within reach. juanita continue to monitor.
[2024-04-20] MEDS: FLEXERIL 5 MG PO (04:03)
--- NOTE | 2024-04-20 04:07 | W.PN.CT ---
Today's Communication / Plan
-
Plan:
-No major issues overnight. Hemodynamically and neurologically intact
-Weaned off of Dobutamine last night @ 2300. Tachycardia has resolved since off
-Cont. diuresis, replete electrolytes
-Cont. current meds (ASA, Crestor, Amiodarone, Lopressor)
-D/C cordis
-Wean off of O2 as tolerated
-Encourage use of IS
-OOB into chair/Ambulate
Assessment / Plan
-
Assessment:
-S/P Urgent sternotomy with aortic and bicaval cannulation/Radical mitral valve repair [34 mm band annuloplasty, triangular resection at the P1 and P2 cleft of torn cords with primary repair, placement of 4 [place]-Am[place] cords to P1/P2/P3], by Dr. Mota,
04/17/24, pod#2
-Acute mitral valve flail/torn cord (type II pathology) with severe insufficiency resulting in respiratory failure
-Acute diastolic CHF
-Hyperdynamic LV of 70-75%, improved to 60-65% postop
-Hyperlipidemia
-Class 1 obesity (BMI 31.7)
-Hypertension
-History of arrhythmias
-ETOH use
-Colon polyps
-Right and left heart cath on this admission with elevated wedge pressures
-Acute postop blood loss/Anemia (stable without transfusion)
-Acute postop hypovolemia with subsequent hypervolemia
-Acute postop atelectasis
-Preop pulmonary edema
-Prop and postop renal insufficiency
Discussed patient care with: Cardiology, Nursing, Respiratory Therapy, Pharmacy and Care Team
Subjective
Procedure
Urgent sternotomy with aortic and bicaval cannulation/Radical mitral valve repair [34 mm band annuloplasty, triangular resection at the P1 and P2 cleft of torn cords with primary repair, placement of 4 [place]-Amador cords to P1/P2/P3], by Dr. Mota,
04/17/24
-
Date of Service: April 20, 2024
Pt c/o indigestion/gas pain, improved with simethicone
Objective Data
-
Lab Results
04/19/24 04:58
04/20/24 03:04
PT 17.0 Sec (11.4-14.6) H 04/17/24 23:37
INR 1.41 04/17/24 23:37
APTT 29.3 Sec (23.4-35.0) 04/17/24 23:37
Vital Signs
Vital Signs
Temp Pulse Resp BP Pulse Ox
98.5 F 77 18 107/80 96
04/20/24 00:00 04/20/24 01:40 04/20/24 00:00 04/20/24 01:00 04/20/24 01:40
CT Intake/Output/Weight
04/19/24 04/19/24 04/20/24
06:59 18:59 06:59
Intake Total 206.2 / 1767.8 1320.8 / 1575.9 255.1 / 1575.9
Output Total 360.7 / 2200.7 970 / 1470 500 / 1470
Balance -154.5 / -432.9 350.8 / 105.9 -244.9 / 105.9
SaO2: 96 (2L)
Physical Exam
-
General: Awake, Oriented and AOx3
Cardiovascular: Regular rate & rhythm, No Murmurs, No Rub and No Gallop
Respiratory: Decreased Breath Sounds (at bases, otherwise clear)
Sternum: Stable
Incision: Clean, Dry, Intact and Dressing Intact
Extremities: Other (+trace edema)
Data Reviewed
-
Lab Results: Results Reviewed
Medications: Active Meds Reviewed
Chest X-Ray: Report Reviewed and Image Reviewed
ECG: Report Reviewed and Image Reviewed
[2024-04-20] MEDS: ROXICODONE 5 MG PO (05:47)
[2024-04-20] MEDS: TYLENOL 1000 MG PO ×3 (05:48→21:30)
--- NOTE | 2024-04-20 08:00 | PTCARENOTE ---
pt received from previous RN, oriented, OOB in chair. SR w/ 1st degree AVB, HR 80s. HEALTH SCIENCES PROGRAM COORDINATOR aware of NE interval. SBP 110-130s. palpable pulses. pt 90% POX on RA, IS encouraged. lungs diminished in bases. pt abdomen s/n, denies n/v. diet tolerated well.
voids. 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 chest tube site c/d/i. unable to flush RIAman Gaines HEALTH SCIENCES PROGRAM COORDINATOR aware. PIV. see worklist for VS, I&O, and assessment.
--- NOTE | 2024-04-20 08:20 | W.PN.CD ---
Today's Communication / Plan
-
diurese
increase activity
ECHO tomorrow
Impression / Plan
-
54-year-old male with hypertension, hyperlipidemia, mild obesity, and family history of coronary artery disease (brother and father) presenting with chest pain and shortness of breath and noted to have acute severe mitral regurgitation due to flail
posterior leaflet rupture
Acute heart failure
-Severe acute heart failure NYHA class IV improved
-Urgent left heart cath on 04/17/2024
Elevated filling pressure with mild pulmonary hypertension. Hyperdynamic LV with EF 65%
No significant CAD
-Acute heart failure due to mitral valve flail/torn cord
-Urgent CT surgery evaluation and repair on 04/17/2024
-Weaned off dobutamine 04-19
Mitral valve repair
-Acute mitral valve flail and torn cord
-S/p sternotomy with aortic and bicaval cannulation with mitral valve repair with 34 mm band annuloplasty, triangular resection of P1 and P2 cleft of the torn cords with primary repair and placement of 4 [place] cords to P1, P2 and P3 by Dr. Mota.
On 04/17/2024
-Significant respiratory failure with pulmonary edema-significantly improved with mitral valve repair
-No AF yet
-On aspirin, amiodarone, metoprolol and Crestor
-With metoprolol started dobutamine as off now.
- Diurese
Physical Exam
Vital Signs/Labs
Vital Signs
Temp Pulse Resp BP Pulse Ox
98.5 F 84 16 115/71 93
04/20/24 04:00 04/20/24 07:35 04/20/24 04:00 04/20/24 07:00 04/20/24 07:35
04/19/24 04/20/24 04/21/24
06:59 06:59 06:59
Actual Weight 253 lb 4.978 oz 254 lb 6.615 oz
04/19/24 04:58
04/20/24 03:04
PT 17.0 Sec (11.4-14.6) H 04/17/24 23:37
INR 1.41 04/17/24 23:37
APTT 29.3 Sec (23.4-35.0) 04/17/24 23:37
Magnesium 2.2 mg/dl (1.6-2.3) 04/20/24 03:04
Triglycerides 116 mg/dl (10-149) 04/18/24 03:32
LDL Cholesterol, Calc 51 mg/dl 04/18/24 03:32
VLDL Cholesterol, Calc 23 mg/dl (0-30) 04/18/24 03:32
HDL Cholesterol 56 mg/dl 04/18/24 03:32
LAB Results
04/17/24
09:05
Troponin I 0.126 H*
Physical Exam
EENT: Anicteric
Cardiovascular: Rhythm & rate is regular, S1S2 is normal and Murmur/rub/gallop absent
Respiratory: Respiratory effort normal and Crackles Absent
GI: Soft
Neuro/Psych: Motor deficits absent
Data Reviewed
-
Date of Service: April 20, 2024
[2024-04-20] MEDS: LOW STRENGTH ASPIRIN 81 MG PO (09:10)
[2024-04-20] MEDS: PACERONE 200 MG PO ×3 (09:10→21:30)
[2024-04-20] MEDS: PROTONIX 40 MG PO (09:10)
[2024-04-20] MEDS: VITAMIN C 500 MG PO (09:10)
[2024-04-20] MEDS: LASIX 40 MG IV ×2 (09:11→15:58)
[2024-04-20] MEDS: MAGNESIUM OXIDE 500 MG PO ×2 (09:11→21:05)
[2024-04-20] MEDS: SENOKOT-S 1 TABLET PO (09:11)
[2024-04-20] MEDS: LOPRESSOR 12.5 MG PO ×2 (09:11→21:05)
[2024-04-20] MEDS: LIDOCAINE 4% PATCH 1 PATCH TOPICAL (09:11)
[2024-04-20] MEDS: NEURONTIN 100 MG PO ×3 (09:11→21:30)
[2024-04-20] MEDS: BACTROBAN 2% OINTMENT 1 APPLIC NASAL ×2 (09:12→21:05)
--- NOTE | 2024-04-20 12:00 | PTCARENOTE ---
pt VSS, pt ambulated in hallway w/ stand by assist. RIJ Cordis unable to flush, dc'd per order, dressing c/d/i. OOB in chair for lunch. at bedside.
--- NOTE | 2024-04-20 13:35 | PTCARENOTE ---
@~ 1330- pt c/o brief lightheadedness w/ 'floaters that looked like stain glass window on L side', VS completed, stable. equal strength throughout, patient states passed quickly. BRENDA Romo aware.
[2024-04-20] MEDS: FERRLECIT 110 MG IV (13:40)
--- NOTE | 2024-04-20 17:55 | CM ---
dc plans remain home with when medically sta ble and f/u visit from the ct transitional care nurse
--- NOTE | 2024-04-20 20:00 | PTCARENOTE ---
Received pt from [facility]. pt resting comfortably in chair with at bedside. pt is AAOX4, states pain is 3/10. NSR 1st degree AVB, VSS. heart sounds audible, radial and DP pulses palpable, no edema noted. crackles in b/l posterior lower lobes,
continued use of IS encouraged, spo2 94% on RA. + BS x4 quadrants, abdomen soft non tender. pt voiding clear yellow urine without difficulty. surgical sites maintained. PIV maintained. pt ambulating with stand by assist. pt assisted back to bed. CT
dressing changed, CHG bath provided, new gown and linens provided. CVPA changed 25mg metoprolol to 12.5 mg due to 1st degree AVB. call santos within reach. will continue to monitor.
[2024-04-20] MEDS: SENOKOT-S PO (21:07)
[2024-04-20] MEDS: MUCINEX 1200 MG PO (21:30)
[2024-04-20] MEDS: CRESTOR 10 MG PO (21:30)
[2024-04-20] MEDS: NSS IV (21:31)
[2024-04-21] VITALS (9 sets, daily range): BP systolic 99–136; BP diastolic 74–89; PULSE 73; O2SAT 95–96; BMI 31.5
--- NOTE | 2024-04-21 | PTCARENOTE ---
Pt resting comfortably in bed. NSR on monitor. spo2 dropped to high 80s while sleeping. 2LNC place on pt, spo2 now 95%. call santos within reach. will continue to monitor.
--- NOTE | 2024-04-21 04:00 | PTCARENOTE ---
Pt assessment unchanged. NSR with 1st degree AVB. VSS. Labs drawn and sent. resting comfortably in bed. call asntos within reach. will continue to monitor.
[2024-04-21 04:04] LABS: Hematocrit 26.6 % (39.0-52.0); Hemoglobin 9.1 g/dL (13.0-18.0); Mean Corp Hgb Conc. 34.2 g/dL (33.0-37.0); Mean Corpuscular Volume 93.7 fL (80.0-94.0); Mean Platelet Volume 11.4 fL (7.4-10.4); Platelet Count 133 10^3/uL (130-400); Red Blood Cell Count 2.84 10^6/uL (4.70-6.10); Red Cell Dist. Width 12.6 % (11.5-14.5); White Blood Cell Count 6.6 10^3/uL (4.8-10.8)
[2024-04-21 04:22] LABS: Blood Urea Nitrogen 25 mg/dl (9-20); Calcium 8.4 mg/dl (8.4-10.2); Carbon Dioxide 28 mmol/L (22-30); Chloride 100 mmol/L (98-107); Estimated Creatinine Clearance 113 ml/min; Glucose 122 mg/dl (70-99); Magnesium 2.3 mg/dl (1.6-2.3); Sodium 138 mmol/L (135-145); eGFR > 60.00
[2024-04-21] MEDS: TYLENOL 1000 MG PO (06:18)
--- NOTE | 2024-04-21 06:27 | W.PN.CT ---
Today's Communication / Plan
-
-pod #4
-looks and feels well, no complaints, ambulated in hallways without problems on 04/20
-Echo today to eval MV
-diuresed 1450 on 04/20
-current meds (ASA, Crestor, Amio, Lopressor 25 bid, Lasix 40 iv bid, Protonix)
-wean off O2 as tolerated
-encourage IS, OOB
-continue to ambulate
-possible d/c soon
Assessment / Plan
-
Assessment:
-S/P Urgent sternotomy with aortic and bicaval cannulation/Radical mitral valve repair [34 mm band annuloplasty, triangular resection at the P1 and P2 cleft of torn cords with primary repair, placement of 4 [place]-Am[place] cords to P1/P2/P3], by Dr. Mota,
04/17/24, pod#4
-Acute mitral valve flail/torn cord (type II pathology) with severe insufficiency resulting in respiratory failure
-Acute diastolic CHF
-Hyperdynamic LV of 70-75%, improved to 60-65% postop
-Hyperlipidemia
-Class 1 obesity (BMI 31.7)
-Hypertension
-History of arrhythmias
-ETOH use
-Colon polyps
-Right and left heart cath on this admission with elevated wedge pressures
-Acute postop blood loss/Anemia (stable without transfusion)
-Acute postop hypovolemia with subsequent hypervolemia
-Acute postop atelectasis
-Preop pulmonary edema
-Prop and postop renal insufficiency
Discussed patient care with: Nursing and Care Team
Subjective
Procedure
Urgent sternotomy with aortic and bicaval cannulation/Radical mitral valve repair [34 mm band annuloplasty, triangular resection at the P1 and P2 cleft of torn cords with primary repair, placement of 4 [place]-Am[place] cords to P1/P2/P3], by Dr. Mota,
04/17/24
-
Date of Service: April 21, 2024
Objective Data
-
PT 17.0 Sec (11.4-14.6) H 04/17/24 23:37
INR 1.41 04/17/24 23:37
APTT 29.3 Sec (23.4-35.0) 04/17/24 23:37
Vital Signs
Vital Signs
Temp Pulse Resp BP Pulse Ox
98.9 F 76 20 130/81 95
04/21/24 00:00 04/21/24 01:00 04/21/24 00:00 04/21/24 00:00 04/21/24 01:00
CT Intake/Output/Weight
04/20/24 04/20/24 04/21/24
06:59 18:59 06:59
Intake Total 255.1 / 1575.9 120 / 120
Output Total 700 / 1670 1450 / 1450
Balance -444.9 / -94.1 -1330 / -1330
SaO2: 95
Physical Exam
-
General: Awake and AOx3
Cardiovascular: Regular rate & rhythm, No Murmurs and No Rub
Sternum: Stable
Incision: Clean, Dry and Intact
Extremities: No Edema (1+DPs b/l)
Abdomen: soft, nondistended, nontender, + bowel sounds, no nausea, + BM
Data Reviewed
-
Lab Results: Results Reviewed
Medications: Active Meds Reviewed
Chest X-Ray: Report Reviewed and Image Reviewed
ECG: Report Reviewed and Image Reviewed
--- NOTE | 2024-04-21 08:13 | PTCARENOTE ---
Patient received from restaurant shift supervisor resting oob in chair, AAO x 3, states pain controlled. Finishing breakfast. NSR w/1st degree via cm, SaO2 @ 96% on RA. All procedural sites stable. Dr. Mota and CT team to bedside - patient updated to plan of care
for the day, including possible d/c home later, in agreement. See work list for full assessment and interventions performed.
[2024-04-21] MEDS: BACTROBAN 2% OINTMENT 1 APPLIC NASAL (08:57)
[2024-04-21] MEDS: LASIX 40 MG IV (08:57)
[2024-04-21] MEDS: PROTONIX 40 MG PO (08:58)
[2024-04-21] MEDS: MAGNESIUM OXIDE 500 MG PO (08:58)
[2024-04-21] MEDS: LOPRESSOR 25 MG PO (08:58)
[2024-04-21] MEDS: SENOKOT-S PO (08:59)
[2024-04-21] MEDS: NEURONTIN 100 MG PO (08:59)
[2024-04-21] MEDS: PACERONE 200 MG PO (08:59)
[2024-04-21] MEDS: LOW STRENGTH ASPIRIN 81 MG PO (08:59)
[2024-04-21] MEDS: LIDOCAINE 4% PATCH TOPICAL (08:59)
--- NOTE | 2024-04-21 11:34 | W.PN.CD ---
Today's Communication / Plan
-
Echo then discharge later today.
Impression / Plan
-
54-year-old male with hypertension, hyperlipidemia, mild obesity, and family history of coronary artery disease (brother and father) presenting with chest pain and shortness of breath and noted to have acute severe mitral regurgitation due to flail
posterior leaflet rupture
Acute heart failure
-Severe acute heart failure NYHA class IV improved
-Urgent left heart cath on 04/17/2024
-Elevated filling pressure with mild pulmonary hypertension. Hyperdynamic LV with EF 65%
-No significant CAD
-Acute heart failure due to mitral valve flail/torn cord
-Urgent CT surgery evaluation and repair on 04/17/2024
-doing great post op, appears euvolemic
Mitral valve repair
-Acute mitral valve flail and torn cord
-S/p sternotomy with aortic and bicaval cannulation with mitral valve repair with 34 mm band annuloplasty, triangular resection of P1 and P2 cleft of the torn cords with primary repair and placement of 4 [place] cords to P1, P2 and P3 by Dr. Mota.
On 04/17/2024
-Significant respiratory failure with pulmonary edema-significantly improved with mitral valve repair
-No AF yet
-On aspirin, amiodarone, metoprolol and Crestor
-Echo today and likely discharge
Physical Exam
Vital Signs/Labs
Vital Signs
Temp Pulse Resp BP Pulse Ox
98.1 F 82 17 136/85 96
04/21/24 08:07 04/21/24 09:30 04/21/24 08:07 04/21/24 08:59 04/21/24 08:12
04/20/24 04/21/24 04/22/24
06:59 06:59 06:59
Actual Weight 115.4 kg 114.4 kg
04/21/24 03:35
04/21/24 03:35
PT 17.0 Sec (11.4-14.6) H 04/17/24 23:37
INR 1.41 04/17/24 23:37
APTT 29.3 Sec (23.4-35.0) 04/17/24 23:37
Magnesium 2.3 mg/dl (1.6-2.3) 04/21/24 03:35
Triglycerides 116 mg/dl (10-149) 04/18/24 03:32
LDL Cholesterol, Calc 51 mg/dl 04/18/24 03:32
VLDL Cholesterol, Calc 23 mg/dl (0-30) 04/18/24 03:32
HDL Cholesterol 56 mg/dl 04/18/24 03:32
Physical Exam
Constitutional: No acute distress
Cardiovascular: Rhythm & rate is regular, Pedal edema is absent, JVD pressure is normal, Systolic murmur absent and Diastolic murmur absent
Respiratory: Respiratory effort normal, Wheeze Absent, Rhonchi Absent and Crackles Present (Mild at the bases)
Neuro/Psych: AO x 3
Data Reviewed
-
Date of Service: April 21, 2024
EKG: Other (Telemetry with sinus)
--- NOTE | 2024-04-21 12:20 | PTCARENOTE ---
VS obtained, assessment stable. Patient resting oob in chair, awaiting lunch. at bedside. Hopeful for d/c later this afternoon.
--- NOTE | 2024-04-21 13:35 | W.DCSUMMARY ---
Discharge Summary
Discharge Data
Date of Admission: 04/17/24
Date of Discharge: 04/21/24
-
Pending Results: No
Hospital Course
Primary care physician: Angus Simon
Outpatient drum sander setter: Sagar
Inpatient consultants: ADELE
Procedures:
1. 04/17/24 Left & right heart catheterization- Dr. Khoa Li
2. 04/17/24 emergent mitral valve repair with 34mm band and goretex neochords x4 by Dr. Calvin Mota
Primary Diagnosis:
1. Acute mitral valve flail/torn cord (type II pathology) with severe insufficiency resulting in respiratory failure
2. acute heart failure with preserved ejection fraction
3. pulmonary edema
Secondary Diagnoses:
1. hypertension
2. hyperlipidemia
3. class 1 obesity
4. colon polyps
HPI: Patient is a 54-year-old male with past medical history hypertension hyperlipidemia who presented to [facility] on 04/17/2024 with acute onset shortness of breath. Evaluation in the ED with echo demonstrated new severe mitral
regurgitation with torn chordae and flail leaflet and hyperdynamic LV function. CT surgery was consulted for evaluation for repair. Later that evening patient went for left and right heart catheterization which demonstrated no coronary disease,
but patient decompensated and decision was made to proceed emergently to the operating room for mitral valve repair.
Hospital course: Patient underwent an emergent mitral valve repair with 34 mm band and [place] new cords x [address] Calvin Mota without any perioperative complications. He was transferred to CVICU per protocol on Levophed at 5, dobut at 4 insulin
and Precedex. He remained intubated overnight, and was extubated the next morning at 10:35 AM. Dobutamine was weaned down to 1.5 IV diuresis with Lasix was initiated. Peace, Cameron and A-line were discontinued without incident. On postop day 2
dobutamine continued to be weaned down, low-dose beta-esau was started. Temporary pacing wires were pulled and chest tubes were removed later that afternoon. He continued with IV diuresis and was transferred to telemetry phase. On postop day 3
he is off all drips IV diuresis continues, still requiring 2 L O2 via nasal cannula. Cordis is discontinued without incident. He is ambulating. On postop day 4 he continues to improve, two-view chest x-ray was completed with resolution of
pulmonary edema and no significant effusions. Follow-up echo demonstrated trace MR. He is discharged to home with close follow-up with the transitional care nurse from [facility] who will see him in a few days.
Home medication changes: Patient has been started on aspirin for mitral repair, Lasix and potassium x 5 days for volume overload. He can continue Tylenol and gabapentin for postsurgical pain. Prescription provided for oxycodone if needed for
breakthrough pain. Patient instructed to stop losartan at this time, new prescription for metoprolol provided.
Discharge Plan
-
Patient Disposition: Home (Routine Discharge)
Discharge Diagnosis/Procedures: acute severe MR 2/2 torn chord; s/p emergent mitral valve repair
Condition: Good
Diet: Low Sodium
Activity: No strenuous activity
Driving Restrictions: Not until seen by your Dr
Bathing Restrictions: OK to Shower
Other Services: Cardiac Rehab
Specialty Instructions: Weigh Daily- Call MD for wt gain/loss 3 lbs overnight/5 lbs in 1 week
Activity Restrictions/Additional Instructions:
ACTIVITY:
-No strenuous activity: no heavy lifting, pushing, pulling anything over 15 pounds for one month
-continue to use stairs as tolerated
DRIVING RESTRICTIONS:
-No driving for one month or until approved by your surgeon
WOUND CARE:
-Shower daily. Use soap & water.
-No lotions, creams or powders on incision area.
DIET:
-continue a low fat/low cholesterol diet.
-IF you are diabetic, continue carb controlled diet.
CARDIAC REHAB:
-Please make appointment to start in 5-6 weeks with your local hospital program. (See Cardiac Rehabilitation Discharge Booklet).
SPECIALTY INSTRUCTIONS:
-Weigh yourself daily. Call your physician for any weight gain/loss of 3 lbs overnight or 5 lbs in one week.
-REPORT any clicking noise or uneven appearance of your sternum to your surgeon immediately.
-If you smoke, you are instructed to quit. The [place] smoking hotline phone number is [phone]
Stand Alone Forms: DC Instructions- Cath/EP Lab
Referrals:
CT Transitional Care Nurse [Outside] - in one to two days
(
The Cardiothoracic Transitional Care Nurse will call you to set up a visit in 1-2 days.)
[facility] [Outside] - 05/19/24 8:30 am
(Cardiac Rehab Orientation appointment is on May 19 at 0830 (Saturday) am
The Cardiac Rehab gym is located on the first floor of the [facility].)
Dede Blum NP [Specified Professional Personl] - 06/15/24 9:40 am
Angus Simon PA-C [Family Provider] -
Calvin Mota MD [Active] - 05/20/24 1:45 pm
Prescriptions:
New
acetaminophen 325 mg Tablet
650 mg PO Q6HPRN PRN (Reason: mild pain,headache,temp >101F ) Qty: 0 0RF
aspirin 81 mg Tablet,Chewable
81 mg PO DAILY Qty: 90 1RF
metoprolol tartrate 25 mg Tablet
25 mg PO BID Qty: 60 0RF
lidocaine 4 % Adhesive Patch,Medicated
1 patch topical DAILY PRNQty: 0 0RF
sennosides-docusate sodium 8.6-50 mg Tablet
1 tab PO Q12 PRNQty: 0 0RF
guaifenesin 600 mg Tablet Extended Release 12hr
1,200 mg PO [id number] PRN (Reason: mucous production) Qty: 0 0RF
gabapentin 100 mg Capsule
100 mg PO TID Qty: 30 0RF
furosemide [Lasix] 40 mg tablet
40 mg PO DAILY Qty: 5 0RF
potassium chloride [Klor-Con M20] 20 mEq tablet,ER particles/crystals
20 meq PO DAILY Qty: 5 0RF
oxycodone 5 mg Tablet
5 mg PO Q4HPRN PRN (Reason: moderate pain) Qty: 8 0RF
Continued
rosuvastatin 10 mg tablet
10 mg PO HS
Discontinued
losartan 100 mg tablet
100 mg PO DAILY
Discharge Orders:
Discharge Patient (As Directed); Ordered 04/21/24
Ordered By: Clarissa Sandoval
Care Plan Goals
Care Plan Goals:
Problem: Readiness for enhanced knowledge related to diagnosis and treatment plan
Goal: Understand your diagnosis and treatment plan needs, including medications if applicable.
Instructions: Know your diagnosis, underlying causes and treatment plan options, including medications if applicable. Consult with your health care team to learn about your diagnosis and treatment plan, including medications if applicable.
Discharge Date and Time
Discharge Date/Time: 04/21/24 14:42
Print Language: ESTONIAN
--- NOTE | 2024-04-21 14:16 | PTCARENOTE ---
Repeat echo completed, reviewed by surgeon. Pa/lat performed. Patient set up to shower, completed independently. Discharge instructions thoroughly reviewed w/patient and spouse, all questions answered. Patient and all belongings transported to
waiting vehicle for d/c home.
== END 2024-04-21 14:42 | disposition home or self-care (01) | DRG 216 ==
LOC: CVICU 14:31
PROVIDERS: Anesthesiology; Internal Medicine Cardiovascular Disease; Nurse Practitioner; Nurse Practitioner Adult Health; Physician Assistant Medical; ADMITTING PHYSICIAN Internal Medicine; ATTENDING PHYSICIAN Thoracic Surgery (Cardiothoracic Vascular Surgery); CONSULT PHYSICIAN Internal Medicine Critical Care Medicine; EMERGENCY PHYSICIAN Emergency Medicine; FAMILY PHYSICIAN Physician Assistant Medical
PROC: 4A023N8 Measurement of Cardiac Sampling and Pressure, Bilateral, Percutaneous Approach (ICD-10-PCS; 2024-04-17)
PROC: B24BZZ4 Ultrasonography of Heart with Aorta, Transesophageal (ICD-10-PCS; 2024-04-17)
PROC: 02UG0JZ Supplement Mitral Valve with Synthetic Substitute, Open Approach (ICD-10-PCS; 2024-04-17)
PROC: B2111ZZ Fluoroscopy of Multiple Coronary Arteries using Low Osmolar Contrast (ICD-10-PCS; 2024-04-17)
PROC: B2151ZZ Fluoroscopy of Left Heart using Low Osmolar Contrast (ICD-10-PCS; 2024-04-17)
PROC: 5A1221Z Performance of Cardiac Output, Continuous (ICD-10-PCS; 2024-04-17)
DX: I34.0 Nonrheumatic mitral (valve) insufficiency (principal); I50.43 Acute on chronic combined systolic (congestive) and diastolic (congestive) heart failure; I51.1 Rupture of chordae tendineae, not elsewhere classified; J96.01 Acute respiratory failure with hypoxia; R57.0 Cardiogenic shock; D62 Acute posthemorrhagic anemia; J98.11 Atelectasis; I11.0 Hypertensive heart disease with heart failure; E78.00 Pure hypercholesterolemia, unspecified; E66.9 Obesity, unspecified; N28.89 Other specified disorders of kidney and ureter; E86.1 Hypovolemia; I27.20 Pulmonary hypertension, unspecified; Z68.31 Body mass index [BMI] 31.0-31.9, adult; Z79.899 Other long term (current) drug therapy; Z82.49 Family history of ischemic heart disease and other diseases of the circulatory system; Z87.891 Personal history of nicotine dependence; Z86.0109 Personal history of other colon polyps
CPT/HCPCS: 93308; 71045; 71046; 80048; 80053; 80061; 81003; 81015; 82330; 82565; 82805; 82810; 82947; 82962; 83036; 83735; 84132; 84302; 84443; 84484; 84520; 85014; 85018; 85025; 85027; 85049; 85379; 85610; 85730; 86850; 86900; 86901; 86920; 87040; 87811; 93005; 93306; 93312; 93320; 93321; 93325; 93460; 94002; 96365; 96366; 99285; C1894; J2916; P9047; Q9967

== ENCOUNTER 2024-05-19 14:01 | Outpatient (RCR) | payer OTHER, SELFPAY | END 2024-05-19 23:59 | disposition home or self-care (01) | LOC: CRHB 14:01 | PROVIDERS: ATTENDING PHYSICIAN Internal Medicine | DX: Z95.4 Presence of other heart-valve replacement (principal) | CPT/HCPCS: 93005; G0422 ==

== ENCOUNTER → 2024-05-27 09:26 | Day surgery (SDC) | payer OTHER, SELFPAY | LOC: CATH 09:26 | PROVIDERS: ATTENDING PHYSICIAN Student in an Organized Health Care Education/Training Program; FAMILY PHYSICIAN Physician Assistant Medical; OTHER PHYSICIAN Internal Medicine Cardiovascular Disease | DX: I48.91 Unspecified atrial fibrillation (principal); I08.3 Combined rheumatic disorders of mitral, aortic and tricuspid valves; I77.810 Thoracic aortic ectasia; I10 Essential (primary) hypertension; E78.5 Hyperlipidemia, unspecified; Z86.0100 Personal history of colon polyps, unspecified | CPT/HCPCS: 93312; 93320; 93325; 92960; 93005 ==

== ENCOUNTER 2024-06-17 08:40 | Outpatient (RCR) | payer OTHER, SELFPAY | END 2024-06-17 23:59 | disposition home or self-care (01) | LOC: CRHB 08:40 | PROVIDERS: ATTENDING PHYSICIAN Internal Medicine; FAMILY PHYSICIAN Physician Assistant Medical | DX: Z95.4 Presence of other heart-valve replacement (principal) | CPT/HCPCS: G0422; G0423 ==

== ENCOUNTER 2024-07-05 19:04 | Inpatient (IN) | payer OTHER, SELFPAY ==
[2024-07-05] VITALS (9 sets, daily range): BP systolic 93–147; BP diastolic 64–93; BMI 31.4; BMI 30.6
[2024-07-05 14:56] LABS: % Basophils 0.3 % (0-2); % Eosinophils 0.7 % (0-6); % Immature Granulocytes 0.3 % (0-0.5); % Lymphocytes 9.5 % (20.5-51.1); % Monocytes 11.8 % (1.7-9.3); % Neutrophils 77.4 % (42.2-75.2); Absolute Eosinophils 0.1 10^3/uL (0-0.7); Absolute Monocytes 1.3 10^3/uL (0.1-0.6); Absolute Neutrophils 8.3 10^3/uL (1.4-6.5); Hemoglobin 14.3 g/dL (13.0-18.0); Mean Corpuscular Hgb 29.7 pg (27.0-31.0); Mean Corpuscular Volume 87.1 fL (80.0-94.0); Mean Platelet Volume 10.2 fL (7.4-10.4); Nucleated Red Blood Cells % 0 % (-); Platelet Count 279 10^3/uL (130-400); Red Blood Cell Count 4.82 10^6/uL (4.70-6.10); Red Cell Dist. Width 12.9 % (11.5-14.5); White Blood Cell Count 10.7 10^3/uL (4.8-10.8)
[2024-07-05 15:08] LABS: INR 1.33; PT 16.8 Sec (11.4-14.6)
[2024-07-05 15:26] LABS: ALT (SGPT) 22 U/L (0-50); AST (SGOT) 27 U/L (17-59); Albumin 3.8 g/dl (3.5-5.0); Alkaline Phosphatase 81 U/L (38-126); Blood Urea Nitrogen 19 mg/dl (9-20); Calcium 9.1 mg/dl (8.4-10.2); Carbon Dioxide 23 mmol/L (22-30); Chloride 97 mmol/L (98-107); Estimated Creatinine Clearance 102 ml/min; Glucose 168 mg/dl (70-99); Potassium 5.1 mmol/L (3.5-5.1); Sodium 130 mmol/L (135-145); Total Bilirubin 0.6 mg/dl (0.2-1.3); Total Protein 6.5 g/dl (6.3-8.2); eGFR > 60.00
--- NOTE | 2024-07-05 15:27 | ED.GENMED ---
History of Present Illness
General
Chief Complaint: Cardiac Symptoms
Source: patient and spouse
Exam Limitations: none
Time Seen by Provider: 07/05/24 15:15
History of Present Illness
History of Present Illness:
See MDM
Past History
Past History
ED Past Medical History: None
ED Past Surgical History: None
Social History
Tobacco: Non-smoker
Alcohol: Occasional
Drug: None
Personal:
Living: with family
Employment: Employed
Family History
Family History: Other
Phy Exam
Physical Exam
Physical Exam:
See MDM
Course
Orders/Labs/Results
Orders:
Orders
07/05/24 14:33
Electrocardiogram (*1) Urgent
Reason for Study: Chest Pain
EKG- Treatment ONCE
07/05/24 14:49
Complete Blood Count/With Diff Urgent
Comprehensive Metabolic Panel Urgent
Prothrombin Time Urgent
TSH Reflex To Free T4 Urgent
Comment: ADD ON
Troponin I Urgent
07/05/24 15:26
CT Chest Pe Study Urgent
Comment:
Reason For Exam: SOB, R side chest pain, tachycardic
0.9% Sodium Chloride 1000 ml [Nss] 1,000 ml IV BOLUS
Colchicine 0.6 mg PO NOW STA
07/05/24 15:40
Add On- LAB Urgent
Tests Added?: TSH reflex Free T4
07/05/24 17:00
Troponin I Urgent
07/05/24 18:23
Add On- LAB Urgent
Tests Added?: Pro-BNP
Consult Cardiology [CARDIOLOGY CONSULT] Routine
Consulting Provider: Taylor Villalobos
Was physician already notified: Yes
Abnormal Lab Results
07/05/24
14:49
Absolute Neuts (auto) 8.3 H 10^3/uL
(1.4-6.5)
Absolute Lymphs (auto) 1.0 L 10^3/uL
(1.2-3.4)
Absolute Monos (auto) 1.3 H 10^3/uL
(0.1-0.6)
Neutrophils % 77.4 H %
(42.2-75.2)
Lymphocytes % 9.5 L %
(20.5-51.1)
Monocytes % 11.8 H %
(1.7-9.3)
PT 16.8 H Sec
(11.4-14.6)
Sodium 130 L mmol/L
(135-145)
Chloride 97 L mmol/L
(98-107)
Glucose 168 H mg/dl
(70-99)
07/05/24 14:49
07/05/24 14:49
Vital Signs
Initial and Last Documented VS:
Initial Vital Signs
Temp Pulse Resp BP Pulse Ox
98.2 F 109 22 128/91 97
07/05/24 14:36 07/05/24 14:36 07/05/24 14:36 07/05/24 14:36 07/05/24 14:36
Last Documented Vital Signs
Temp Pulse Resp BP Pulse Ox
98.2 F 101 25 118/93 96
07/05/24 14:36 07/05/24 17:15 07/05/24 17:15 07/05/24 17:01 07/05/24 17:15
MDM/Problems Addressed
Differential Diagnosis Includes:
HPI and MDM Narrative:
54-year-old male presenting for evaluation of persistent elevated heart rate and left chest and back pain. Patient had mitral valve replacement a few months ago. He is on Eliquis. Symptoms are worse when he lays down and appears to get better
when he leans forward.
On exam, he is well-appearing nontoxic. He is mildly tachycardic. Will obtain CT to rule out PE given recent procedure and symptoms. Will give dose of colchicine with concern for postsurgical pericarditis
Physical exam
General: Well appearing and non-toxic
HEENT: protecting airway. Mildly dry mucous membrane
Neck: appears supple
CV: No evidence of cyanosis. Mild tachycardia
Resp: No accessory muscle use. Lungs clear
Abd: Non-distended
Extremities: No deformities
Neuro: alert
Psych: Normal affect
Skin: Intact
Problems Addressed including Acute and Chronic Conditions affecting care:
1. Shortness of breath and chest pain
Acuity: acute
Prognosis: stable
Details: Will obtain CT rule out PE but will give dose of colchicine with concern for pericarditis
Updates
CT negative for PE but there is evidence of pericardial effusion and pleural effusion. Patient feeling somewhat better after colchicine. Case discussed with cardiology. Will admit for echo
Differential Diagnosis (but not limited to): Pericardial effusion, pericarditis, PE, pneumothorax
Testing considered: Chest x-ray but will obtain CT instead
Drug therapy (if applicable): OTC meds, please see d/c instruction regarding Rx drugs
Amount and/or Complexity of Data Reviewed
Clinical info obtained from: Patient
External data reviewed: N/A
Labs I independently reviewed (but not limited to): White blood cell count normal
Radiology: The CT scan was personally and independently reviewed. In addition, official CT report reviewed.
Pulse Ox: not hypoxic
EKG independently reviewed: Sinus tachycardia, normal axis, no STEMI
Stone Hand: Sinus tachycardia
Critical Care: N/A
Risk of Complication:
Social Determinants of health: Good social support
Discussed with other providers: Body Worker, hospitalist
Escalation of Care includes Admit/Obs: Given the pleural effusion and pericardial effusion, will admit
Occasional wrong word or 'sound a like' substitutions may have occurred due to the inherent limitations of voice recognition software. Read the chart carefully and recognize, using context, where substitutions have occurred.
*Critical Care Note
Total Time (30-74mins, 75-104mins- exclusive of procedures): Not Applicable
ED Attending Note
-
Portions of this chart may have been created with voice recognition software.� Occasional wrong word or��sound alike� substitutions may have occurred due to the inherent limitations of voice recognition software.
Discharge Plan
Departure
Patient Disposition: Admit
Date of Disposition: 07/05/24
Time of Disposition: 18:25
Admit to: Telemetry
Presentation/result/management discussed w/ accepting MD/DO: Hospitalist
Discharge Problem:
Pericarditis, Pleural effusion
Prescriptions:
No Action
rosuvastatin 10 mg tablet
10 mg PO HS
acetaminophen 325 mg Tablet
650 mg PO Q6HPRN PRN (Reason: mild pain,headache,temp >101F ) Qty: 0 0RF
oxycodone 5 mg Tablet
5 mg PO Q4HPRN PRN (Reason: moderate pain) Qty: 8 0RF
metoprolol succinate 100 mg Tablet Extended Release 24 Hr
100 mg PO DAILY
valsartan 160 mg Tablet
160 mg PO DAILY
Eliquis 5 mg Tablet
5 mg PO BID
Referrals:
Navneet Baird DO [Family Provider] -
Interventions
Interventions:
*Risk Screen - Suicide Last Done: 07/05/24 14:36
*General Assessment Last Done: 07/05/24 14:36
*Neglect/Abuse Screening Last Done: 07/05/24 14:36
ED- Fall Risk Assessment Last Done: 07/05/24 15:13
*ED COVID-19 Vaccine History Last Done: 07/05/24 15:13
ED- Pulmonary Assessment Last Done: 07/05/24 15:14
ED- Cardiac Assessment Last Done: 07/05/24 15:14
Discharge Date and Time
Print Language: SLOVENIAN
[2024-07-05 15:37] LABS: Troponin I 0.025 ng/ml
[2024-07-05 16:35] LABS: TSH Reflex To Free T4 1.35 uIU/ml (0.47-4.68)
[2024-07-05] MEDS: COLCHICINE 0.6 MG PO ×2 (16:56→21:22)
[2024-07-05] MEDS: NSS 1000 IV (16:56)
[2024-07-05 17:34] LABS: Troponin I 0.019 ng/ml
--- NOTE | 2024-07-05 18:51 | HPS.HSE ---
Family Physician
-
Family Physician: Navneet Baird DO
Chief Complaint
-
back pain
History of Present Illness
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
left shoulder pain which is worse with movement or breathing starting 6 days ago. Pain is better when he leans forward. He has chills but denies fever. Denies shortness of breath. Denies any weight gain or lower extremity edema.
Drinks alcohol occasionally. Denies smoking.
His brother had mitral valve prolapse. Another brother had VT.
Medical History
Past Medical History
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
Past Surgical History: Reports Other (MV repair )
Social History
Tobacco: Non-smoker
Alcohol: Occasional
Drug: None
Family History
Family History: Not pertinent
Allergies / Home Medications
Allergies reflects when Allergies were last updated in [facility].
Home Medications with original date entered in [facility]
Allergy/Medication List:
Allergies
Allergy/AdvReac Type Severity Reaction Status Date / Time
No Known Allergies Allergy Verified 03/15/13 17:34
Home Medications
rosuvastatin 10 mg tablet 10 mg PO DAILY High Cholesterol 04/17/24
acetaminophen 325 mg tablet 650 mg (2 x 325 mg) PO Q6HPRN PRN mild pain,headache,temp >101F #0 tabs 04/21/24
apixaban 5 mg tablet (Eliquis) 5 mg PO BID 05/27/24
metoprolol succinate 100 mg tablet,extended release 24 hr 100 mg PO DAILY 05/27/24
gabapentin 100 mg capsule 100 mg PO BIDPRN PRN mild pain 07/05/24
sacubitril 49 mg-valsartan 51 mg tablet (Entresto) 1 tab PO BID 07/05/24
spironolactone 25 mg tablet 12.5 mg PO DAILY 07/05/24
Review of Systems
-
History Source: Patient
A 12 point ROS was completed and negative except as noted: Yes
Constitutional: Reports No Symptoms
EENT: Reports No Symptoms
Respiratory: Reports See HPI
Cardiac: Reports See HPI
Abdomen/GI: Reports No Symptoms
: Reports No Symptoms
Musculoskeletal: Reports No Symptoms
Skin: Reports No Symptoms
Neurological: Reports No Symptoms
Endocrine: Reports No Symptoms
Hematologic/Lymphatic: Reports No Symptoms
Psych: Reports No Symptoms
Physical Exam
Vital Signs
Vital Signs
Temp Pulse Resp BP Pulse Ox
98.2 F 102 25 147/77 96
07/05/24 14:36 07/05/24 18:15 07/05/24 18:15 07/05/24 18:00 07/05/24 18:15
Physical Exam
General: Well Developed, Well Nourished and No Apparent Distress
HEENT: NormoCephalic, Moist mucous membranes and Atraumatic
Respiratory: Clear
Cardiac: S1/S2 and Regular Rhythm; No Murmur or Rub
GI: Soft, Non Tender, Non Distended and Normal Bowel Sounds; No Organomegaly
Rectal: Deferred by Provider
Musculoskeletal: No Clubbing, No Cyanosis and No Edema
Skin: No Rash
Neuro: Nonfocal/grossly intact
Laboratory Results
-
07/05/24 14:49
07/05/24 14:49
Laboratory Results
PT 16.8 Sec (11.4-14.6) H 07/05/24 14:49
INR 1.33 07/05/24 14:49
Total Bilirubin 0.6 mg/dl (0.2-1.3) 07/05/24 14:49
AST 27 U/L (17-59) 07/05/24 14:49
ALT 22 U/L (0-50) 07/05/24 14:49
Alkaline Phosphatase 81 U/L (38-126) 07/05/24 14:49
Troponin I 0.019 ng/ml 07/05/24 17:00
Data Reviewed
-
Lab Data: Labs Reviewed by me
Old Records: Reviewed
Impression/Plan
-
IMPRESSION:
PLAN:
# Left posterior shoulder pain secondary to viral pericarditis
# Small to moderate pericardial effusion
-EKG shows sinus tachycardia, no notable ST-T wave changes or NV depression
-Troponin of 0.025
-CT chest negative for pulmonary embolism, aortic dissection,
-There is small to moderate pericardial effusion
-Trend troponins
-Colchicine started
-IV fluids given, hold further fluids
-Check echo
-Cardiology consulted
# Moderate left pleural effusion likely related to pericarditis
-Clinically in heart failure
-Not symptomatically short of breath but will likely will require IR thoracentesis
Mild ascending aortic aneurysm at the level of right main pulmonary artery
-Incidentally found on CT scan
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
-Patient currently attending cardiac rehab
Chronic HFpEF
-Continue Entresto
-Continue spironolactone
-Continue metoprolol
History of paroxysmal atrial flutter
-Continue Eliquis
Essential hypertension
-Continue losartan
Hyperlipidemia
-Continue statin
Obesity
History of colon polyps
Full code
DVT prophylaxis�heparin
Cardiac diet
[2024-07-05 19:21] LABS: NT-proBNP 1420 pg/ml
[2024-07-05 21:13] LABS: Troponin I 0.017 ng/ml
[2024-07-05] MEDS: TYLENOL 650 MG PO (21:22)
[2024-07-05] MEDS: ELIQUIS 5 MG PO (21:22)
[2024-07-05] MEDS: NEURONTIN 100 MG PO (21:22)
[2024-07-05] MEDS: ENTRESTO 49 MG/51 MG 1 TAB PO (21:25)
[2024-07-06 03:05] VITALS: BP 105/88
[2024-07-06 03:28] LABS: Troponin I < 0.012 ng/ml
[2024-07-06 06:00] VITALS: BMI 30.4
[2024-07-06 07:44] VITALS: BMI 30.4
[2024-07-06] MEDS: ELIQUIS 5 MG PO (07:46)
[2024-07-06] MEDS: COLCHICINE 0.6 MG PO (07:46)
[2024-07-06] MEDS: CRESTOR 10 MG PO (07:46)
[2024-07-06] MEDS: ALDACTONE 12.5 MG PO (07:46)
[2024-07-06] MEDS: TOPROL XL 100 MG PO (07:47)
[2024-07-06] MEDS: ENTRESTO 49 MG/51 MG 1 TAB PO (07:48)
[2024-07-06] MEDS: TYLENOL 650 MG PO (07:58)
[2024-07-06 07:59] VITALS: BP 144/98
--- NOTE | 2024-07-06 07:59 | CON.CAR ---
Addendum entered and electronically signed by Ehsan Jimenez MD 07/06/24 09:50:
I saw and examined the patient.
The GAS DISPENSER's note was reviewed and I agree with the note.
Comment:
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 Keith) with hypertension, dyslipidemia, acute mitral regurgitation s/p surgical repair on 04/17/2024, NICM (EF 40-45%) with post-op course complicated by atrial flutter (s/p ALEXANDER/DCCV
05/27/24) who presented to the emergency room yesterday with a chief complaint of elevated heart rate. He notes that his resting heart rate is usually in the 70s. Over the past several days he noted that it was up into the 120s which is what
brought him into the hospital. On review of systems he also notes a recent upper respiratory tract infection and left shoulder pain that improved with leaning forward. He had been trying lidocaine patches for it and thought it was musculoskeletal
from cardiac rehab. It has improved since starting colchicine here in the hospital. Exam is notable for heart rate in the 100s, regular rhythm, no murmurs/rubs/gallop; lungs are clear to auscultation bilaterally and there is no lower extremity
edema. Labs are notable for normal troponin and BNP 1420. ESR/CRP are pending. Chest CT with no pulmonary embolism or aortic dissection. There is a moderate left pleural effusion and a small to moderate pericardial effusion. On echocardiogram,
pericardial effusion is small with no evidence of tamponade. Ejection fraction is stable from prior. ECG shows sinus tachycardia (HR 105) with subtle ST elevations diffusely and CT depressions.
I suspect that he has acute pericarditis from either postpericardiotomy syndrome or recent viral illness. Follow-up ESR/CRP. We will treat with colchicine 0.6 mg twice daily for 3 months as well as high-dose NSAIDs (ibuprofen 600 mg 3 times daily,
taper by 200 mg weekly). He should also take a daily PPI given his need for systemic anticoagulation on top of high-dose NSAIDs. We will continue home GDMT for heart failure with mildly reduced ejection fraction (BB, Entresto, spironolactone).
Consideration of SGLT2i as an outpatient.
Original Note:
Consultation
Consultation Request
Date/Time Consultation Requested: 07/05/2024 18:00
Date/Time Consultation Performed: 07/06/2024 08:00
Requesting Provider: Dr. Snell
Performing Provider: SANDOR Fournier
Reason for Consultation: Pericardial effusion on CT
Medical History
-
Chief Complaint: Elevated HR
History of Present Illness:
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 Keith) with hypertension and dyslipidemia who developed severe heart failure from acute mitral regurgitation. He underwent surgical repair on 04/17/2024. His postoperative
echo revealed LVEF of 40-45%. He developed typical atrial flutter and proceeded to ALEXANDER/DCCV on 07/27/2023 which was successful in restoring sinus rhythm. He presented to the emergency room yesterday with a chief complaint of elevated heart rate. He
thought he was back in atrial flutter. He endorsed left shoulder pain. It gets worse when he lies flat and improves when he sits up. He denies chest pain and shortness of breath.
Past Medical History
Past Medical History: Arrhythmias (Atrial flutter [on apixaban]), HTN, Hypercholesterolemia and Valvular Disease (Mitral valve repair [04/17/2024])
Past Surgical History: Cardiac (Mitral valve repair 04/17/2024)
Social History
Tobacco: Non-Smoker
Alcohol: Occasional
Drug: None
Personal:
Living: With Family
Family History
Family History: Reviewed & Not Pertinent
Allergies / Home Medications
Allergy/AdvReac Type Severity Reaction Status Date / Time
No Known Allergies Allergy Verified 03/15/13 17:34
�Medication �Instructions �Recorded �Confirmed �Type
rosuvastatin 10 mg tablet 10 mg PO DAILY High Cholesterol 04/17/24 07/05/24 History
acetaminophen 325 mg tablet 650 mg (2 x 325 mg) PO Q6HPRN PRN 04/21/24 07/05/24 Rx
mild pain,headache,temp >101F #0
tabs
apixaban 5 mg tablet (Eliquis) 5 mg PO BID Blood Clot 05/27/24 07/05/24 History
Prevention/Tx
metoprolol succinate 100 mg 100 mg PO DAILY Heart 05/27/24 07/05/24 History
tablet,extended release 24 hr Disease/Condition
gabapentin 100 mg capsule 100 mg PO BIDPRN PRN mild pain 07/05/24 07/05/24 History
sacubitril 49 mg-valsartan 51 mg 1 tab PO BID Heart 07/05/24 07/05/24 History
tablet (Entresto) Disease/Condition
spironolactone 25 mg tablet 12.5 mg PO DAILY Fluid 07/05/24 07/05/24 History
Retention/Swelling
Review of Systems
-
History Source: Patient
All other systems: Negative unless noted
Constitutional: No Symptoms
EENT: No Symptoms
Respiratory: No Symptoms
Cardiac: No Symptoms
Abdomen/GI: No Symptoms
: No Symptoms
Musculoskeletal: Muscle Pain (Left shoulder)
Skin: No Symptoms
Neurological: No Symptoms
Endocrine: No Symptoms
Hematologic/Lymphatic: No Symptoms
Physical Exam
Vital Signs
Temp Pulse Resp BP Pulse Ox
98.3 F 89 18 105/88 96
07/06/24 03:05 07/06/24 03:05 07/06/24 03:05 07/06/24 03:05 07/06/24 03:05
Lab Results
Troponin I < 0.012 ng/ml D 07/06/24 02:39
Nmb-K-Vcaswylwxtw Pept 1420 pg/ml 07/05/24 17:00
Physical Exam
General: Well Developed, Well Nourished, No Apparent Distress and Comfortable
HEENT: Normocephalic, Anicteric and Moist Mucous Membranes
Respiratory: Clear and Non Labored Respirations
Cardiac: S1/S2 and Regular Rhythm
Breast: Deferred by me
GI: Soft, Non Tender, Non Distended and Normal Bowel Sounds
Rectal: Deferred by Provider
Genito-urinary: No Costovertebral Tender
Musculoskeletal: No Clubbing, No Cyanosis and No Edema
Skin: Warm and Dry
Neuro: AO x 3
Hematologic/Lymphatic: No Lymphadenopathy
Psych: Calm
Impression / Plan
-
Left shoulder pain, possible pericarditis
-Improved after colchicine yesterday, continue
-Add on ESR and CRP
HFmrEF (EF 40-45%), chronic
-Weight is down, no orthopnea
-GDMT as tolerated
-LUKASZ/ARB/ARNI: Entresto 49/51 mg BID
-Beta esau: Metoprolol succinate 100 mg daily
-SGLT2: Case management to mendiola
-MRA: Spironolactone 12.5 mg daily
-Device: Not indicated
-Trend daily weight, I/Os, and BMP
Pleural effusion, left
-Moderate on CT
-Denies SOB and orthopnea
Pericardial effusion, on CT
-Small to moderate, TTE pending
Mitral valve repair by Dr Mota on 04/17/2024
-Aortic and bicaval cannulation with mitral valve repair with 34 mm band annuloplasty, triangular resection of P1 and P2 cleft of the torn cords with primary repair and placement of 4 [place] cords to P1, P2 and P3
-Update echo
Atrial flutter, type unknown
-S/P ALEXANDER with DCCV 05/27/2024
-Oral Anticoagulation: Eliquis 5mg BID
-[id number]: score at least 2 (Heart failure, HTN)
Hypertension, stable on current medical therapy
Dyslipidemia, on rosuvastatin
Data Reviewed
-
EKG: Report Reviewed by me (Sinus tachycardia, nonspecific ST abnormality, rate 105)
Labs: Labs Reviewed by me
Old Records: Reviewed
[2024-07-06] MEDS: MOTRIN 600 MG PO (09:53)
[2024-07-06] MEDS: PROTONIX 40 MG PO (09:53)
[2024-07-06 10:06] LABS: % Basophils 0.5 % (0-2); % Eosinophils 3.1 % (0-6); % Immature Granulocytes 0.3 % (0-0.5); % Lymphocytes 13.3 % (20.5-51.1); % Monocytes 13.6 % (1.7-9.3); % Neutrophils 69.2 % (42.2-75.2); Absolute Eosinophils 0.2 10^3/uL (0-0.7); Absolute Neutrophils 5.1 10^3/uL (1.4-6.5); Hematocrit 40.1 % (39.0-52.0); Hemoglobin 13.4 g/dL (13.0-18.0); Mean Corp Hgb Conc. 33.4 g/dL (33.0-37.0); Mean Corpuscular Volume 89.7 fL (80.0-94.0); Mean Platelet Volume 10.4 fL (7.4-10.4); Nucleated Red Blood Cells % 0 % (-); Platelet Count 284 10^3/uL (130-400); Red Blood Cell Count 4.47 10^6/uL (4.70-6.10); Red Cell Dist. Width 13.1 % (11.5-14.5); White Blood Cell Count 7.4 10^3/uL (4.8-10.8)
[2024-07-06 10:33] LABS: ALT (SGPT) 35 U/L (0-50); AST (SGOT) 52 U/L (17-59); Albumin 3.5 g/dl (3.5-5.0); Alkaline Phosphatase 78 U/L (38-126); Blood Urea Nitrogen 15 mg/dl (9-20); Calcium 9.2 mg/dl (8.4-10.2); Carbon Dioxide 27 mmol/L (22-30); Chloride 98 mmol/L (98-107); Estimated Creatinine Clearance 111 ml/min; Glucose 152 mg/dl (70-99); Potassium 5.1 mmol/L (3.5-5.1); Sodium 134 mmol/L (135-145); Total Bilirubin 0.3 mg/dl (0.2-1.3); eGFR > 60.00
[2024-07-06 10:41] LABS: Erythrocyte Sed Rate 40 mm/hour (0-20)
[2024-07-06 10:50] LABS: C-Reactive Protein > 270.00 mg/L (0.0-10.00)
[2024-07-06 11:22] VITALS: BP 116/82
--- NOTE | 2024-07-06 11:47 | W.PN.HOSP.TC ---
Today's Communication/Plan
-
Ok for DC today
Assessment / Plan
Assessment / Plan
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
colon polyps, presenting with posterior left shoulder pain which is worse with movement or breathing starting 6 days ago. Pain is better when he leans forward
Chest CT:
IMPRESSION: Examination is negative for pulmonary embolism.
There is no evidence for thoracic aortic dissection.
Mild ascending aortic aneurysm with short axis diameter of 4.6 cm at the level of the right main pulmonary artery.
Moderate left pleural effusion. Adjacent atelectasis within the left lower lobe.
Linear/discoid atelectasis within the right middle and right lower lobes. There is no significant right pleural effusion.
Small to moderate pericardial effusion, radius thickness adjacent to the apical region of the left ventricle and posterior to the lateral wall of the left ventricle.
TTE
CONCLUSIONS
Normal left ventricular size with moderately reduced systolic function. LVEF
35-40%.
Normal right ventricular size and function.
Status post mitral valve repair with normal function.
Small pericardial effusion with no evidence of hemodynamic compromise.
Compared to prior study on 04/21/2024, ejection fraction is slightly lower.
Pericardial effusion has increased from trace to small. Stable mitral valve
function.
Indications:
pericardial effusion
# Left posterior shoulder pain secondary to viral pericarditis
# Small to moderate pericardial effusion
-EKG shows sinus tachycardia, no notable ST-T wave changes or [place] depression
-Troponin of 0.025
-CT chest negative for pulmonary embolism, aortic dissection,
-There is small to moderate pericardial effusion
-Colchicine started
-appreciate cardiology, motrin started with Protonix
-TTE above
-OK for discharge per cardiology
# Moderate left pleural effusion likely related to pericarditis
-Clinically in heart failure
-Not symptomatically short of breath but will likely will require IR thoracentesis
Mild ascending aortic aneurysm at the level of right main pulmonary artery
-Incidentally found on CT scan
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
-Patient currently attending cardiac rehab
Chronic HFpEF
-Continue Entresto
-Continue spironolactone
-Continue metoprolol
History of paroxysmal atrial flutter
-Continue Eliquis
Essential hypertension
-Continue losartan
Hyperlipidemia
-Continue statin
Obesity
History of colon polyps
Full code
DVT prophylaxis�heparin
Cardiac diet
Anticipated Discharge: Today
Subjective/Interval History
-
Date of Service: July 06, 2024
feeling much better this morning, less pain
Objective Data
-
Labs:
Laboratory Results
07/06/24
09:46
WBC 7.4
Hgb 13.4
Hct 40.1
Plt Count 284
Sodium 134 L
Potassium 5.1
Chloride 98
Carbon Dioxide 27
BUN 15
Creatinine 1.0
Glucose 152 H
Calcium 9.2
Total Bilirubin 0.3
AST 52
ALT 35
Alkaline Phosphatase 78
Vital Signs:
Vital Signs
Temp Pulse Resp BP Pulse Ox
97.8 F 87 18 116/82 97
07/06/24 11:22 07/06/24 11:22 07/06/24 11:22 07/06/24 11:22 07/06/24 11:22
I&O
07/05/24 07/06/24 07/07/24
06:59 06:59 06:59
Intake Total 0 / 0
Balance 0 / 0
Review of Systems
-
History Source: Patient
All other systems: Reviewed and negative
Physical Exam
-
General: Well Developed and No Apparent Distress
HEENT: Normocephalic, Atraumatic and Moist Mucous Membranes
Respiratory: Decreased Breath Sounds
Cardiac: Regular Rhythm and S1/S2; Negative Murmur, Rub or Gallop
GI: Soft, Nontender, Nondistended and Normal Bowel Sounds; Negative Organomegaly
Rectal: Deferred by Provider
Musculoskeletal: No Clubbing, No Cyanosis and No Edema
Skin: Negative Rash
Neuro: Nonfocal/Grossly Intact
Psych: Calm
Data Reviewed
-
Diagnostic Radiology: Report Reviewed by me
Labs: Labs Reviewed by me
--- NOTE | 2024-07-06 12:04 | W.DS.TRANS ---
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
-
Discharge Instructions:
Sleep Apnea Risk Intermediate
Discharge Diagnosis/Procedures Acute Pericarditis
Diet 2 Gram Sodium,Restrict fluids to 48 oz
Activity As tolerated
Driving Restrictions As prior to admission
Bathing Restrictions None
Specialty Instructions Weigh Daily
Instructions:
Stand-Alone Forms:
Changes to Home Medications: Yes
Discharge Medications:
DC Medications w/original date entered in [facility]
rosuvastatin 10 mg tablet 10 mg PO DAILY High Cholesterol 04/17/24
acetaminophen 325 mg tablet 650 mg (2 x 325 mg) PO Q6HPRN PRN mild pain,headache,temp >101F #0 tabs 04/21/24
apixaban 5 mg tablet (Eliquis) 5 mg PO BID Blood Clot Prevention/Tx 05/27/24
metoprolol succinate 100 mg tablet,extended release 24 hr 100 mg PO DAILY Heart Disease/Condition 05/27/24
gabapentin 100 mg capsule 100 mg PO BIDPRN PRN mild pain 07/05/24
sacubitril 49 mg-valsartan 51 mg tablet (Entresto) 1 tab PO BID Heart Disease/Condition 07/05/24
spironolactone 25 mg tablet 12.5 mg PO DAILY Fluid Retention/Swelling 07/05/24
colchicine 0.6 mg tablet 0.6 mg PO BID #30 tabs 07/06/24
ibuprofen 200 mg capsule 200 mg PO .TAPER #30 caps 07/06/24
pantoprazole 40 mg tablet,delayed release 40 mg PO DAILY #30 tabs 07/06/24
Home Medication Changes
Addition of Motrin, Colchicine and Protonix
Pending Results: No
--- NOTE | 2024-07-06 12:20 | CM ---
Alert awake oriented patient who lives with his Keren who lives in a 2 story home with 2 step to enter and 13 steps to bed and bathroom. He is independent in driving and in all activities of daily living.He was offered VN he declined need.His
will drive him home. He agrees with dc today. Pt informed that Jardiance and Farxiga were both $0.00 copay. No adaptive devices.
[facility] hx / No SNF history
Pharmacy [facility] [address] [place]
PCP DR Navneet Polanco
PLAN Home Declined VN
--- NOTE | 2024-07-06 12:24 | PTCARENOTE ---
Discharge instructions reviewed with patient and . Both verbalize understanding of teaching and deny questions at this time. IV and tele removed. Patient did not want wheelchair. Patient left ambulatory with .
--- NOTE | 2024-07-06 13:55 | W.DCSUMMARY ---
Discharge Summary
Discharge Data
Date of Admission: 07/05/24
Date of Discharge: 07/06/24
-
Pending Results: No
Hospital Course
Discharging Physician : Dr. Jacinta Riojas
Disposition : Home
Primary care physician : Dr. Navneet Baird
Principal Discharge diagnosis : Acute pericarditis
Hospital Course :
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
colon polyps, presenting with posterior left shoulder pain worse with movement. Triage vitals significant for pulse 109. WBC 10.7, Na 130, Cr 1.1. Chest CT negative for PE, finding of moderate left pleural effusion and small to moderate
pericardial effusion. He was admitted to medicine with Cardiology consulting for likely acute pericarditis.
Patient's pain improved with colchicine. TTE obtained showing LVEF 35-40%. Per Cardiology, he is continued on Colchicine and started on Motrin for continued treatment acute pericarditis. He is started on Protonix for GI PPx.
Patient felt ready for discharge today. He has follow up with Cardiology on Jul 29.
Time spent on discharge was 35 minutes.
Important imaging findings :
Chest CT:
IMPRESSION: Examination is negative for pulmonary embolism.
There is no evidence for thoracic aortic dissection.
Mild ascending aortic aneurysm with short axis diameter of 4.6 cm at the level of the right main pulmonary artery.
Moderate left pleural effusion. Adjacent atelectasis within the left lower lobe.
Linear/discoid atelectasis within the right middle and right lower lobes. There is no significant right pleural effusion.
Small to moderate pericardial effusion, radius thickness adjacent to the apical region of the left ventricle and posterior to the lateral wall of the left ventricle.
TTE
CONCLUSIONS
Normal left ventricular size with moderately reduced systolic function. LVEF
35-40%.
Normal right ventricular size and function.
Status post mitral valve repair with normal function.
Small pericardial effusion with no evidence of hemodynamic compromise.
Compared to prior study on 04/21/2024, ejection fraction is slightly lower.
Pericardial effusion has increased from trace to small. Stable mitral valve
function.
Indications:
pericardial effusion
Procedure findings :
Discharge Plan
-
Patient Disposition: Home (Routine Discharge)
Discharge Diagnosis/Procedures: Acute Pericarditis
Condition: Good
Diet: 2 Gram Sodium and Restrict fluids to 48 oz
Activity: As tolerated
Driving Restrictions: As prior to admission
Bathing Restrictions: None
Specialty Instructions: Weigh Daily- Call MD for wt gain/loss 3 lbs overnight/5 lbs in 1 week
Referrals:
Danish Keith MD [Active] - 07/29/24 4:20 pm
Navneet Baird DO [Family Provider] -
Additional Discharge Medication Instructions: IBUPROFEN TAPER:
Ibuprofen 600 mg 3 times a day until 07/11/2024
Ibuprofen 400 mg 3 times a day 07/12-
Ibuprofen 200 mg 3 times a day 07/19/2024-07/25/2023
Colchicine will be twice daily for 3 months.
You will be on pantoprazole while you are on ibuprofen
Prescriptions:
New
pantoprazole 40 mg Tablet,Delayed Release (Dr/Ec)
40 mg PO DAILY Qty: 30 0RF
colchicine 0.6 mg Tablet
0.6 mg PO BID Qty: 30 2RF
ibuprofen 200 mg capsule
200 mg PO .TAPER Qty: 30 0RF
Rx Instructions:
600 mg 3 times a day until 07/11/2024
400 mg 3 times a day 07/12-
200 mg 3 times a day 07/19/2024-07/25/2023
Continued
rosuvastatin 10 mg tablet
10 mg PO DAILY
acetaminophen 325 mg Tablet
650 mg PO Q6HPRN PRN (Reason: mild pain,headache,temp >101F ) Qty: 0 0RF
metoprolol succinate 100 mg Tablet Extended Release 24 Hr
100 mg PO DAILY
Eliquis 5 mg Tablet
5 mg PO BID
spironolactone 25 mg Tablet
12.5 mg PO DAILY
gabapentin 100 mg Capsule
100 mg PO BIDPRN PRN (Reason: mild pain)
sacubitril-valsartan [Entresto] 49-51 mg Tablet
1 tab PO BID
Patient Comments:
patient has free samples
Discharge Orders:
Discharge Patient (As Directed); Ordered 07/06/24
Ordered By: Jacinta Riojas
Discharge Date and Time
Discharge Date/Time: 07/06/24 12:35
Print Language: TELUGU
== END 2024-07-06 12:35 | disposition home or self-care (01) | DRG 315 ==
LOC: 4 EAST ACU 19:04
PROVIDERS: Emergency Medicine; ADMITTING PHYSICIAN Hospitalist; ATTENDING PHYSICIAN Student in an Organized Health Care Education/Training Program; EMERGENCY PHYSICIAN Student in an Organized Health Care Education/Training Program; FAMILY PHYSICIAN Family Medicine; OTHER PHYSICIAN Student in an Organized Health Care Education/Training Program
DX: I30.9 Acute pericarditis, unspecified (principal); I50.42 Chronic combined systolic (congestive) and diastolic (congestive) heart failure; I71.21 Aneurysm of the ascending aorta, without rupture; E78.00 Pure hypercholesterolemia, unspecified; E66.9 Obesity, unspecified; Z68.30 Body mass index [BMI] 30.0-30.9, adult
CPT/HCPCS: 93308; 71275; 80053; 83880; 84443; 84484; 85025; 85610; 85652; 86140; 93005; 99285; Q9967

== ENCOUNTER 2024-07-20 08:47 | Outpatient (RCR) | payer OTHER, SELFPAY | END 2024-07-20 23:59 | disposition home or self-care (01) | LOC: CRHB 08:47 | PROVIDERS: ATTENDING PHYSICIAN Internal Medicine; FAMILY PHYSICIAN Physician Assistant Medical | DX: Z95.4 Presence of other heart-valve replacement (principal) | CPT/HCPCS: 93797; 93798; G0422; G0423 ==

== ENCOUNTER 2024-07-31 09:38 | Emergency (ER) | payer OTHER, SELFPAY ==
[2024-07-31 09:56] VITALS: BP 94/70
[2024-07-31 10:19] LABS: % Basophils 0.3 % (0-2); % Eosinophils 1.3 % (0-6); % Immature Granulocytes 0.3 % (0-0.5); % Lymphocytes 10.5 % (20.5-51.1); % Monocytes 13.6 % (1.7-9.3); Absolute Eosinophils 0.1 10^3/uL (0-0.7); Absolute Lymphocytes 0.8 10^3/uL (1.2-3.4); Absolute Neutrophils 5.3 10^3/uL (1.4-6.5); Hematocrit 39.5 % (39.0-52.0); Hemoglobin 13.2 g/dL (13.0-18.0); Mean Corp Hgb Conc. 33.4 g/dL (33.0-37.0); Mean Corpuscular Hgb 29.4 pg (27.0-31.0); Mean Platelet Volume 10.6 fL (7.4-10.4); Nucleated Red Blood Cells % 0 % (-); Platelet Count 230 10^3/uL (130-400); Red Blood Cell Count 4.49 10^6/uL (4.70-6.10); White Blood Cell Count 7.1 10^3/uL (4.8-10.8)
[2024-07-31 10:39] LABS: ALT (SGPT) 18 U/L (0-50); AST (SGOT) 24 U/L (17-59); Albumin 4.2 g/dl (3.5-5.0); Alkaline Phosphatase 89 U/L (38-126); Blood Urea Nitrogen 26 mg/dl (9-20); Calcium 9.4 mg/dl (8.4-10.2); Carbon Dioxide 26 mmol/L (22-30); Chloride 98 mmol/L (98-107); Glucose 110 mg/dl (70-99); INR 1.29; PT 16.3 Sec (11.4-14.6); Potassium 4.9 mmol/L (3.5-5.1); Sodium 135 mmol/L (135-145); Total Bilirubin 0.5 mg/dl (0.2-1.3); eGFR 58.99
[2024-07-31 10:43] LABS: Troponin I < 0.012 ng/ml
[2024-07-31 11:50] VITALS: BP 115/76
--- NOTE | 2024-07-31 13:46 | ED.GENMED ---
History of Present Illness
General
Chief Complaint: Blood Pressure Problem
Time Seen by Provider: 07/31/24 13:04
History of Present Illness
History of Present Illness:
54-year-old male presents to the emergency department for evaluation of a near syncopal event that occurred during cardiac rehab today. He was reportedly hypotensive during the event. Shortly after the event resolved he feels improved. He does
note that over the past 3 days he was recently initiated on Farxiga. He does feel as though his hydration has been adequate. Denies chest pain or shortness of breath. At this time has no acute complaints
Past History
Past History
ED Past Medical History: None
ED Past Surgical History: None
Social History
Tobacco: Non-smoker
Alcohol: Occasional
Drug: None
Personal:
Living: with family
Employment: Employed
Family History
Family History: Other
Review of Systems
Review of Systems
Allergies reviewed?: Yes
All Other Systems: ROS reviewed and negative except as documented in HPI and ROS
Phy Exam
Physical Exam
Physical Exam:
GEN: Well appearing, NAD, WDWN
HEENT: Oral mucosa moist, no scleral icterus
Cardiac: Regular rate and rhythm, no murmurs
Lung: No respiratory distress, no tachypnea
MSK: No gross deformity or injuries
Skin: Good color, no pallor or jaundice, no rashes
Neuro: AO x3, moves all extremities freely
Psych: Calm, cooperative
Course
Orders/Labs/Results
Orders:
Orders
07/31/24 09:40
EKG [Electrocardiogram (*1)] Urgent
Reason for Study: Syncope
EKG- Treatment ONCE
07/31/24 10:07
Complete Blood Count/With Diff Urgent
Comprehensive Metabolic Panel Urgent
Prothrombin Time Urgent
Troponin I Urgent
Abnormal Lab Results
07/31/24
10:07
RBC 4.49 L 10^6/uL
(4.70-6.10)
MPV 10.6 H fL
(7.4-10.4)
Absolute Lymphs (auto) 0.8 L 10^3/uL
(1.2-3.4)
Absolute Monos (auto) 1.0 H 10^3/uL
(0.1-0.6)
Lymphocytes % 10.5 L %
(20.5-51.1)
Monocytes % 13.6 H %
(1.7-9.3)
PT 16.3 H Sec
(11.4-14.6)
BUN 26 H mg/dl
(9-20)
Creatinine 1.4 H mg/dL
(0.7-1.3)
Glucose 110 H mg/dl
(70-99)
07/31/24 10:07
07/31/24 10:07
Vital Signs
Initial and Last Documented VS:
Initial Vital Signs
Temp Pulse Resp BP Pulse Ox
97.7 F 91 16 94/70 95
07/31/24 09:56 07/31/24 09:56 07/31/24 09:56 07/31/24 09:56 07/31/24 09:56
Last Documented Vital Signs
Temp Pulse Resp BP Pulse Ox
97.7 F 81 16 115/76 98
07/31/24 11:50 07/31/24 11:50 07/31/24 11:50 07/31/24 11:50 07/31/24 11:50
MDM/Problems Addressed
MDM/Problems Addressed:
At this time the patient is quite stable. Mild elevation of serum creatinine most likely prerenal in the setting of insensible fluid loss from Farxiga. Certainly also could be renal injury due to Farxiga administration. He is on numerous
vasoactive medications and as a result he is high risk for orthostasis. At this time he feels well and does not require IV fluids. Recommend slight increase in his home fluids due to recent Farxiga use, outpatient BUN/creatinine in 5 days
*Critical Care Note
Total Time (30-74mins, 75-104mins- exclusive of procedures): Not Applicable
ED Attending Note
-
Portions of this chart may have been created with voice recognition software.� Occasional wrong word or��sound alike� substitutions may have occurred due to the inherent limitations of voice recognition software.
Discharge Plan
Departure
Patient Disposition: Home (Routine Discharge)
Date of Disposition: 07/31/24
Time of Disposition: 13:47
Patient with high blood pressure during this ER visit?: No
Discharge Problem:
Orthostatic hypotension
Instructions: Orthostatic hypotension
Prescriptions:
No Action
rosuvastatin 10 mg tablet
10 mg PO DAILY
acetaminophen 325 mg Tablet
650 mg PO Q6HPRN PRN (Reason: mild pain,headache,temp >101F ) Qty: 0 0RF
metoprolol succinate 100 mg Tablet Extended Release 24 Hr
100 mg PO DAILY
Eliquis 5 mg Tablet
5 mg PO BID
spironolactone 25 mg Tablet
12.5 mg PO DAILY
gabapentin 100 mg Capsule
100 mg PO BIDPRN PRN (Reason: mild pain)
sacubitril-valsartan [Entresto] 49-51 mg Tablet
1 tab PO BID
Patient Comments:
patient has free samples
pantoprazole 40 mg Tablet,Delayed Release (Dr/Ec)
40 mg PO DAILY Qty: 30 0RF
colchicine 0.6 mg Tablet
0.6 mg PO BID Qty: 30 2RF
ibuprofen 200 mg capsule
200 mg PO .TAPER Qty: 30 0RF
Rx Instructions:
600 mg 3 times a day until 07/11/2024
400 mg 3 times a day 07/12-
200 mg 3 times a day 07/19/2024-07/25/2023
Activity Restrictions/Additional Instructions:
There are many potential reasons for your low blood pressure episode. It is likely partially related to the number of medications you on that affect your blood pressure. In particular your newly added Farxiga may increase fluid loss through the
urine. Although you are recommended to restrict fluids after your last admission due to a low ejection fraction, I would recommend increasing her fluids by approximately 10% over the next several days based on your kidney function being abnormal.
Please obtain outpatient kidney function labs next Saturday, if your creatinine is worsening it may indicate the Farxiga is harming your kidneys
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
Interventions
Interventions:
*Risk Screen - Suicide Last Done: 07/31/24 09:56
*General Assessment Last Done: 07/31/24 09:56
*Neglect/Abuse Screening Last Done: 07/31/24 09:56
*Nursing Disposition Last Done: 07/31/24 14:03
ED- Cardiac Assessment Last Done: 07/31/24 14:03
ED- Neurological Assessment Last Done: 07/31/24 14:03
Discharge Date and Time
Discharge Date/Time: 07/31/24 14:04
Print Language: [email or web address]
== END 2024-07-31 14:04 | disposition home or self-care (01) ==
LOC: EMR 09:38
PROVIDERS: Emergency Medicine; EMERGENCY PHYSICIAN Emergency Medicine; FAMILY PHYSICIAN Family Medicine
DX: I95.1 Orthostatic hypotension (principal)
CPT/HCPCS: 99284; 80053; 84484; 85025; 85610; 93005

== ENCOUNTER → 2024-08-05 10:16 | Outpatient (REF) | payer OTHER, SELFPAY ==
--- NOTE | 2024-08-05 11:26 | CARDSERVDEF ---
Echocardiogram with Definity completed after protocol screening completed. Allergies verified.
Patent IV site: _Right forearm 22 G PC,rapid blood return____
IV site flushed with 0.9% NaCl pre and post administration.
Diluted bolus method utilized to enhance visualization of ventricular rodriguez.
Total volume given: ___3.5_ mL
Patient tolerated all procedures well without complications.
Heplock D/C ed at 1124, site clear, no redness, no edema. Pressure held, no bleeding, 2x2 applied and taped. Pt offers no complaints.
== END ==
LOC: RCS 10:16
PROVIDERS: ATTENDING PHYSICIAN Internal Medicine; FAMILY PHYSICIAN Family Medicine
DX: I10 Essential (primary) hypertension (principal)
CPT/HCPCS: 93308; 93321; 93325; Q9957

== ENCOUNTER 2024-08-19 09:03 | Outpatient (RCR) | payer OTHER, SELFPAY ==
[2024-07-31 09:15] LABS: Glucose - Point of Care 130 mg/dl (70-99)
== END 2024-08-19 23:59 | disposition home or self-care (01) ==
LOC: CRHB 09:03
PROVIDERS: ATTENDING PHYSICIAN Internal Medicine; FAMILY PHYSICIAN Physician Assistant Medical
DX: Z95.4 Presence of other heart-valve replacement (principal)
CPT/HCPCS: 82962; G0422; G0423

== ENCOUNTER 2024-09-16 09:55 | Outpatient (RCR) | payer OTHER, SELFPAY | END 2024-09-16 23:59 | disposition home or self-care (01) | LOC: CRHB 09:55 | PROVIDERS: ATTENDING PHYSICIAN Internal Medicine; FAMILY PHYSICIAN Physician Assistant Medical | DX: I25.10 Atherosclerotic heart disease of native coronary artery without angina pectoris (principal); Z95.4 Presence of other heart-valve replacement (principal); Z95.1 Presence of aortocoronary bypass graft | CPT/HCPCS: G0422; G0423 ==